=== PATIENT | male | born 1960 | race African-American/Black ===

== ENCOUNTER 2020-11-24 09:19 | Inpatient (IN) | payer OTHER ==
[~2020-11-24] VITALS: Ht 182.9 cm; Wt 115.7 kg
--- NOTE | ~2020-11-24 | PLAN ---
[facility] [place] [address] REHAB UNIT PLAN OF CARE Name: EMMANUEL CHRISTIE Room #: 353-P ADM IN M.R.#: [id number] Admission: 11/24/20 Attend Phys: Maria Luisa Escobar MD Discharge: Date of : 58 Report #: [id number] THIS REPORT FOR: cc: HERNANDO CHRISTIE Physician not on staff Emmanuel Jorgensen MD ~ DATE OF SERVICE: 12/13/2020 This is a letter of justification for an acute in-hospital inpatient rehabilitation stay. Please see the documentation earlier today from Jillian Cortes, nurse practitioner. I agree with her documentation and findings. The patient meets criteria for an acute in-hospital inpatient rehabilitation stay for the following reasons: 1. He meets the medical necessity criteria and warrants close physiatry involvement. The patient has the multiple medical comorbidities with the COVID-19 pneumonia with hypoxic respiratory failure with improvement from a pulmonary perspective. He continues on the IV Solu-Medrol. Pulmonary medicine has been closely involved along with Infectious Disease. He is currently off the IV antibiotics and is on oral antibiotics. His course has been complicated by bilateral pulmonary emboli. He is needing his platelets closely monitored with the last count at 84,000 and he has had issues with hypercoagulable state. He also has had issues with odynophagia with dysphagia and Gastroenterology is involved with question of Salud esophagitis versus herpes. He has been started on nystatin swish and swallow and continued the PPI. He does have obesity with suspected obstructive sleep apnea. His overall medical course has improved and the plan is for him to be discharged to the acute inpatient rehab [facility] tomorrow, 12/14/2020, as he will be able to be taken out of isolation and could actually be transferred to the acute in-hospital inpatient rehabilitation [facility] which exists within the [facility]. He has had issues with delirium and documented encephalopathy, which also are improving, but not yet resolved. He was placed on Haldol p.r.n. on 11/28/2020 and received scheduled Haldol from 12/03/2020 to 12/10/2020. He is no longer having issues with agitation. He has been off the Haldol since 12/10/2020. He has had issues with cognitive slowness noted by nursing and has safety issues, which have been documented in occupational therapy. Speech therapy has been consulted as far as further documenting his cognitive deficits. He meets criteria for an acute in-hospital inpatient rehabilitation stay and the multiple business management consultant physicians could continue to follow while on the acute inpatient rehabilitation [facility]. 2. The patient has the tolerance for an acute inpatient rehabilitation stay. He is now ambulating up to 60 feet in physical therapy. He starts at 2.[address] [place] [address] REHAB UNIT PLAN OF CARE Name: EMMANUEL CHRISTIE Room #: 353-P [place] IN M.R.#: [id number] Admission: 11/24/20 Attend Phys: Maria Luisa Escobar MD Discharge: Date of : 58 Report #: [id number] at rest with an increase up to 6 liters with activity. His tolerance has improved nicely and he now has reached the level of being able to tolerate the 3 hours of therapy. He has the occupational therapy need to maximize independence with ADLs, which are also complicated by the safety issues which are noted with his improving encephalopathy. He warrants 3 disciplines including speech therapy to work on cognitive issues as well as to further assist regarding the swallowing issues, which have been noted above. 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 In coordinating all of these disciplines as well as the multiple medical consultants and the array of therapy needs, it is critical to have a event decorator and designer or physical medicine and vendor management specialist involved. The services thus are warranted and indicated within an acute inpatient rehabilitation ____. 3. [facility] has had COVID-19 rehabilitation waivers that have also been in place, which will not be indicated in this patient's case, but I think are indication of the appropriateness and importance of proper care involving this patient population. While this is not a Medicare replacement plan, I think it is also important to note that [facility] has come across with policies regarding benefits and medical necessity in their policy menu. Chapter 4 benefits ____ indicates that "coverage criteria can be no more restrictive than original Medicare's national and local coverage policies." I appreciate the ability to appeal this case to a event decorator and designer. It is only our desire to give this patient the appropriate care that he warrants, needs and deserves. The ability for him to get his rehabilitation within the same hospital he has received his acute care will be of benefit to him as far as continuity of care and we will also allow the rehabilitation program to maximize his functional independence and overall recovery which is our underlying goal as healthcare providers. If I can be of any further assistance, my office number is [phone]. By: [id number] Emmanuel Jorgensen MD /nt
[2020-11-24 09:19] VITALS: BP 132/86
--- NOTE | 2020-11-24 10:06 | NUR ---
TALKED WITH PT, STATED OK TO KEEP DAUGHTER UPDATED WITH MEDICAL DAUGHTER JOEY CHRISTIE: [phone]
[2020-11-24 10:08] LABS: ABSOLUTE NEUTROPHILS 2.9 thou/uL (1.4-8.2); BASOPHILS 0.5 % (0.0-2.0); EOSINOPHILS 0.1 % (0.0-3.0); HEMOGLOBIN 14.9 gm/dL (14.0-18.0); LYMPHOCYTES 24.1 % (24.0-44.0); MCH 28.8 pg (26.0-34.0); MCHC 33.1 g/dL (28.0-37.0); MCV 86.9 fL (80.0-100.0); PLATELET COUNT 134 thou/uL (150-400); POLYS 66.3 % (36.0-66.0); RBC 5.18 mil/uL (4.50-6.00); RDW 13.8 % (10.5-14.5); WBC 4.4 thou/uL (4.0-11.0)
[2020-11-24 10:19] LABS: ANION GAP 12 mmol/L (7-16); BUN 20 mg/dL (7-18); CALCIUM 8.4 mg/dL (8.5-10.1); CHLORIDE 100 mmol/L (98-107); CO2 25 mmol/L (21-32); CREATININE 1.7 mg/dL (0.7-1.3); GLUCOSE 113 mg/dL (74-106); POTASSIUM 3.9 mmol/L (3.5-5.1); SODIUM 137 mmol/L (136-145)
[2020-11-24 10:29] LABS: ALBUMIN 3.1 g/dL (3.4-5.0); SGOT 61 U/L (15-37); SGPT 41 U/L (30-65); TOTAL BILIRUBIN 0.6 mg/dL (0.2-1.0); TOTAL PROTEIN 7.5 g/dL (6.4-8.2); TROPONIN-I <0.06 ng/mL (<0.06)
[2020-11-24 11:30] LABS: BE(vivo) -0.9 mmol/L (-2 to +3); HCO3 22.3 mmol/L (22.0-26.0); PCO2 33.2 mmHg (35.0-45.0); PO2 53.6 mmHg (80.0-100.0); pH 7.446 (7.360-7.450); sO2 89.5 % (92.0-98.0)
[2020-11-24 12:09] VITALS: BP 135/90
--- NOTE | 2020-11-24 12:22 | NUR ---
TRIED TO GIVE DAUGHTER A CALL WITH UPDATE. NO ANSWER.
[2020-11-24 12:23] VITALS: BP 127/88
[2020-11-24 12:38] VITALS: BP 119/89
[2020-11-24 15:02] LABS: URINE BLOOD 1+ (Negative); URINE CLARITY CLEAR; URINE COLOR YELLOW; URINE GLUCOSE-RANDOM* NEGATIVE (Negative); URINE KETONES NEGATIVE (Negative); URINE LEUKOCYTES-REFLEX TRACE (Negative); URINE NITRITE-REFLEX NEGATIVE (Negative); URINE PROTEIN (DIPSTICK) 2+ (Negative); URINE SPECIFIC GRAVITY >= 1.030 (1.005-1.035)
[2020-11-24 15:08] LABS: ICTOTEST (BILI CONFIRMATORY) Negative (Negative); URINE BILIRUBIN NEGATIVE (Negative)
[2020-11-24 15:10] LABS: FINE GRANULAR CASTS 4-10 Moderate /LPF (None Seen)
[2020-11-24 15:11] LABS: BACTERIA-REFLEX 1-9 Few /HPF (None Seen); CASTS None Seen /LPF (None Seen); MUCUS 4-6 Moderate strn/LPF (None Seen); SQUAMOUS 4-10 Moderate /LPF (0-3); URINE RBC 0-2 Rare /HPF (0-2); URINE WBC-REFLEX 0-5 Rare /HPF (0-5)
[2020-11-24 15:12] LABS: AMORPHOUS URATES Few /LPF (None Seen)
[2020-11-24 15:22] VITALS: BP 120/80
--- NOTE | 2020-11-24 16:32 | NUR ---
PATIENT ADMITTED TO UNIT AT THIS TIME. HE IS ALERT ORIENTED X4. DENIES PAIN. RESPIRATIONS ARE EVEN NON LABORED. UP WITHOUT ASSIT TO BATHROOM. NO OPEN AREAS NOTED TO SKIN. ON COVID ISOLATION.
[2020-11-24 19:56] VITALS: BP 113/75
[2020-11-25 00:02] VITALS: BP 115/82
[2020-11-25 04:30] LABS: ABSOLUTE NEUTROPHILS 3.6 thou/uL (1.4-8.2); BASOPHILS 0.5 % (0.0-2.0); HEMATOCRIT 40.8 % (42.0-52.0); HEMOGLOBIN 13.2 gm/dL (14.0-18.0); LYMPHOCYTES 11.7 % (24.0-44.0); MCH 28.2 pg (26.0-34.0); MCHC 32.2 g/dL (28.0-37.0); MCV 87.6 fL (80.0-100.0); PLATELET COUNT 148 thou/uL (150-400); POLYS 81.8 % (36.0-66.0); RBC 4.66 mil/uL (4.50-6.00); WBC 4.3 thou/uL (4.0-11.0)
[2020-11-25 04:54] LABS: ALBUMIN 2.5 g/dL (3.4-5.0); CALCIUM 8.3 mg/dL (8.5-10.1); CREATININE 1.5 mg/dL (0.7-1.3); MAGNESIUM 2.6 mg/dL (1.8-2.4); PHOSPHORUS 2.9 mg/dL (2.5-4.9); POTASSIUM 4.1 mmol/L (3.5-5.1); TOTAL BILIRUBIN 0.4 mg/dL (0.2-1.0); TOTAL PROTEIN 7.2 g/dL (6.4-8.2)
[2020-11-25 05:10] VITALS: BP 105/70
[2020-11-25 07:30] VITALS: BP 145/84
--- NOTE | 2020-11-25 08:03 | NUR ---
PROGRESS PT SLEPT MOST OF NIGHT SEEMS VERY FATIGUED BUT STATES HE DOESN'T FEEL THAT SICK IVF'S INFUSING ORDERED PT TOLERATING LIQUIDS VOIDING QS DARK YELLOW URINE LUNGS DIMINISHED PTDENIES PRODUCTIVE COUGH.
--- NOTE | 2020-11-25 18:50 | NUR ---
PATIENT CONT TO PROGRESS TOWARDS DISCH. NEEDS REMINDER TO PUT ON OXYGEN. NOW SLEEPING.
[2020-11-25 21:15] VITALS: BP 123/67
[2020-11-26 02:05] LABS: GLYCOHEMOGLOBIN (HGB A1C) 6.4 % (4.8-5.6)
[2020-11-26 04:52] VITALS: BP 121/74
[2020-11-26 05:47] LABS: ABSOLUTE NEUTROPHILS 14.1 thou/uL (1.4-8.2); BASOPHILS 0.1 % (0.0-2.0); HEMOGLOBIN 12.7 gm/dL (14.0-18.0); LYMPHOCYTES 3.6 % (24.0-44.0); MCHC 31.8 g/dL (28.0-37.0); MCV 88.1 fL (80.0-100.0); PLATELET COUNT 170 thou/uL (150-400); POLYS 92.3 % (36.0-66.0); RBC 4.54 mil/uL (4.50-6.00); RDW 13.8 % (10.5-14.5)
--- NOTE | 2020-11-26 06:10 | NUR ---
Received pt. on 10L/HF with O2 sat in the low 90's. He does get short of breath with exertion. Encouraged to use IS. He stated he slept well during the night. Up ad jose in room with steady gait. No respiratory distress when he got up to use the bathroom.Cont. on enhanced precaution , afebrile.
[2020-11-26 06:12] LABS: ALBUMIN 2.3 g/dL (3.4-5.0); ANION GAP 9 mmol/L (7-16); BUN 26 mg/dL (7-18); CHLORIDE 110 mmol/L (98-107); CO2 22 mmol/L (21-32); CREATININE 1.3 mg/dL (0.7-1.3); DIRECT BILIRUBIN < 0.1 mg/dL (<0.1-0.2); GLUCOSE 143 mg/dL (74-106); MAGNESIUM 2.5 mg/dL (1.8-2.4); PHOSPHORUS 2.8 mg/dL (2.6-4.7); SGOT 37 U/L (15-37); SGPT 31 U/L (16-63); SODIUM 141 mmol/L (136-145); TOTAL BILIRUBIN 0.4 mg/dL (0.2-1.0); TOTAL PROTEIN 6.8 g/dL (6.4-8.2); WBC 15.3 thou/uL (4.0-11.0)
[2020-11-26 06:20] LABS: POTASSIUM 4.5 mmol/L (3.5-5.1)
[2020-11-26 07:45] VITALS: BP 126/69
--- NOTE | 2020-11-26 07:58 | HC ---
[facility] [place] [address] CONSULTATION Name: EMMANUEL CHRISTIE Room #: 361[facility] IN ..#: [id number] Admission: 11/24/20 Attend Phys: Maria Luisa Ecsobar MD Discharge: Date of : 58 Report #: [id number] THIS REPORT FOR: cc: HERNANDO CHRISTIE Physician not on staff Erich Meeks MD ~ DATE OF SERVICE: 11/25/2020 INFECTIOUS DISEASE CONSULTATION ATTENDING PHYSICIAN: Dr. Maria Luisa Escobar REASON FOR EVALUATION: COVID-19 infection, complicated by pneumonitis and respiratory failure. HISTORY OF PRESENT ILLNESS: Chart reviewed, patient examined. This is a 60-year-old gentleman without significant medical history who had noted onset of illness within the last couple of weeks, he had progressive dyspnea and occasional cough. He describes as chest-related discomfort, almost comparable to acid reflux. He did have episodes of dry heaving, not aware of any significant fevers. He did lose a sense of smell or taste. He did have generalized myalgias, arthralgias either. Evaluation was confirmed to have a positive COVID test. Chest x-ray showed cardiomegaly. Creatinine elevated at 1.7. D-dimer slightly elevated at 1.45. CTA chest did confirm ground glass opacities consistent with the COVID. ABGs showed hypoxemia with pO2 of 53.6 on 2 liters nasal cannula. Urinalysis is otherwise unremarkable, 0-5 white cells. Urinary antigens were unremarkable. Influenza antigen was negative as well. He was empirically started on therapy with ceftriaxone, azithromycin, latter was switched to doxycycline. ALLERGIES: None known. MEDICATIONS: Currently include ascorbic acid, fenofibrate, ceftriaxone, zinc, melatonin, methylprednisolone, doxycycline, cholecalciferol, famotidine, ivermectin. PAST MEDICAL HISTORY: Otherwise, unremarkable. SOCIAL HISTORY: Former smoker. No ethanol. No illicit drug use. FAMILY HISTORY: Noncontributory. REVIEW OF SYSTEMS: Otherwise, unremarkable. PHYSICAL EXAMINATION: [facility] [address] [place] [address] CONSULTATION Name: EMMANUEL CHRISTIE Room #: [address] [place] [address] [place] [facility].#: [id number] Admission: 11/24/20 Attend Phys: Maria Luisa Escobar MD Discharge: Date of : 58 Report #: [id number] GENERAL: Ipjs-ka-ylcufmsy distress, sitting in the side of bed. He has nasal cannula in place, increased work of breathing. He is obese. VITAL SIGNS: Temperature 98.3, pulse 79, respirations 20, blood pressure 145/84. SKIN: Warm, dry, no rashes. HEENT: Normocephalic. Extraocular muscles are intact. NECK: Does have a thick neck seems to be supple. LUNGS: Diminished breath sounds. He has got some crackles at the bases. HEART: Regular. I do not appreciate a murmur. ABDOMEN: Somewhat firm, nontender. EXTREMITIES: No cyanosis. GENITOURINARY AND RECTAL: Deferred. LABORATORY DATA: Electrolytes: Sodium 138, potassium 4.1, chloride 104, bicarbonate is 22, anion gap of 12, BUN and creatinine 21 and 1.5, glucose of 158. AST of 46, ALT of 33, albumin 2.5, total protein of 7.2, estimated GFR 58. CBC: White count of 4.3, H and H 13.2 and 40.8, platelets of 148. TSH 2.132. Vitamin B12 957. Legionella, Streptococcus pneumoniae antigen was negative. ABGs: pH 7.446, pCO2 of 33.2, pO2 of 53.6 on 2 liters. ASSESSMENT: COVID-19 infection, complicated by pneumonitis and respiratory failure. The patient with significant obesity, does have hyperglycemia as well. We will continue therapy as prescribed. He was given ceftriaxone, doxycycline, will continue those as well as ivermectin will initiate therapy with remdesivir, receive vitamins and corticosteroids as well. He remains somewhat tenuous. We will continue to monitor expectantly. Continue oxygen support as allowed. Add incentive spirometry. <ELECTRONICALLY SIGNED> By: Erich Meeks MD 11/26/20 0758 [id number] Erich Meeks MD /nt
--- NOTE | 2020-11-26 10:22 | EKG ---
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: JCHAIBIJU : 1960 Requested By: Tucker Youngblood Order Number: [id number] MD: Yanick Pacheco Measurements Intervals [place] Rate: 109 P: 9 [place]: 155 QRS: 33 QRSD: 97 T: 5 QT: 324 QTc: 437 Interpretive Statements Sinus tachycardia Baseline wander in lead(s) V2 No previous ECG available for comparison Electronically Signed On 11-26-2020 10:22:00 JOURNEYMAN POWERHOUSE OPERATOR by Yanick Pacheco [email or web address] <ELECTRONICALLY SIGNED> By: Yanick Pacheco MD, [facility] 11/26/20 1022 0935 0935 Yanick Pacheco MD, FACC /EPI
--- NOTE | 2020-11-26 10:25 | EKG ---
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: BRENDA : 1960 Requested By: Koby Gomez Order Number: [id number] : Yanick Pacheco Measurements Intervals [place] Rate: 74 P: 30 ID: [id number] QRS: 17 QRSD: 114 T: -2 QT: 398 QTc: 442 Interpretive Statements Sinus rhythm Borderline intraventricular conduction delay Borderline T abnormalities, inferior leads No previous ECG available for comparison Electronically Signed On 11-26-2020 10:25:21 ABLE BODIED SEAMAN by Yanick Pacheco [email or web address] <ELECTRONICALLY SIGNED> By: Yanick Pacheco MD, [facility] 11/26/20 1025 0913 2 Yanick Pacheco MD, FACC /EPI
[2020-11-26 11:18] LABS: BE(vivo) -2.9 mmol/L (-2 to +3); HCO3 20.1 mmol/L (22.0-26.0); PCO2 30.3 mmHg (35.0-45.0); PO2 120.9 mmHg (80.0-100.0); sO2 98.5 % (92.0-98.0)
[2020-11-26 11:27] VITALS: BP 127/79
--- NOTE | 2020-11-26 14:18 | NUR ---
INITIAL ASSESSMENT: SW reviewed chart and spoke with nursing. Pt was admitted from home due to acute respiratory failure. Pt had positive COVID test on 11/24. Pt placed in Enhanced Isolation due to COVID. Pt is afebrile and requiring bipap support. Pt is on IV abx and IV steroids. Pt has been started on Remdesivir and Ivermectin. Pt unable to speak via phone due to bipap. SW placed call to pt's dtr, Neal ([phone]). Voice mailbox is full. Per chart, pt is alert/orientated and lives at home. Pt's PCP is Dr. Jerardo Boggs. SW is following to assist as needed with discharge planning.
[2020-11-26 16:52] VITALS: BP 130/89
--- NOTE | 2020-11-26 19:48 | NUR ---
RN ASSUMED PT'S CARE AT 0700AM, PT IS A&OX3, PT HAS DE-SAT WITH O2 15L/MIN/NC, PT HAS BIPAP WITH O2 80-100% AT MOST OF TIME TO KEEP O2SAT 95-98%, PULMOMOLOGY DR HAS CONSULT, PT IS CONTINUING IV ABX AND REMDESIVI, PT DENIES PAIN AT DAY SHIFT.
[2020-11-26 20:29] VITALS: BP 112/72
[2020-11-27 00:46] VITALS: BP 135/94
[2020-11-27 05:04] VITALS: BP 146/99
--- NOTE | 2020-11-27 05:18 | NUR ---
PT RESTING QUIETLY. VSS AFEBRILE. SATS 98% ON BIPAP. NO C/O.
[2020-11-27 07:39] VITALS: BP 136/90
--- NOTE | 2020-11-27 09:12 | NUR ---
DISCONNECTED BIPAP AT PT REQUEST TO USE RESTROOM FOR BM. TRANSFERRED PT TO 15L VIA NC FOR REST ROOM TRIP. PT WAS SLIGHTLY UNSTABLE WITH AMBULATION. UPGRADED TO FALL RISK. RECONNECTED PT TO BIPAP. PULSE OX SATURATION STABLE AT 95%.
[2020-11-27 09:22] LABS: ALBUMIN 2.5 g/dL (3.4-5.0); CALCIUM 8.6 mg/dL (8.5-10.1); CREATININE 1.4 mg/dL (0.7-1.3); DIRECT BILIRUBIN 0.2 mg/dL (<0.1-0.2); PHOSPHORUS 4.1 mg/dL (2.5-4.9); TOTAL BILIRUBIN 0.4 mg/dL (0.2-1.0); TOTAL PROTEIN 7.3 g/dL (6.4-8.2)
--- NOTE | 2020-11-27 10:27 | NUR ---
Assess due to high BMI 41.9 which may be scale error. Past few days, wts trending 266-280 lb, now sudden increase 309 lb? Admit with COVID+ status. Has required steroids, and now on BIPAP. Intake yesterday fair to good. Low nutrition risk at this time, but will continue to follow per protocol and if respiratory needs change.
--- NOTE | 2020-11-27 13:27 | NUR ---
SW reviewed chart and spoke with nursing and attending physician. Pt remains in Enhanced Isolation due to COVID. Pt is afebrile and requiring bipap support. Pt is on IV abx and IV steorids. Pt is on Remdesivir. Therapy evals to be ordered when pt is able to participate. SW is following to assist as needed with discharge planning.
--- NOTE | 2020-11-27 16:49 | NUR ---
PT FAMILY DELIVERED FOOD AND DRINK FOR PT. THIS RN INQUIRED WITH PT FAMILY IF HOT LIQUID CONTAINED ELDERBERRY. PT FAMILY STATED "IT'S FROM THE EARTH". THIS RN UNSURE IF ELDERBERRY IS COMPATIBLE WITH PT NUMEROUS IV TREATMENT FLUIDS. PT STATES HE IS NOT INTERESTED IN DRINKING HOT LIQUID AFTER PT FAMILY CONFIRMED IT HAS MULTIPLE INGREDIENTS "FROM THE EARTH". PT INSTEAD CHOSE TO DRINK [place] JUICE DRINK PT FAMILY PROVIDED. PT ALSO HAS CHICKEN NOODLE SOUP FROM FAMILY HE DECLINED TO EAT AT THIS TIME HE IS HAVING DIFFICULTY BREATHING AND EATING AT BRIEF BREAKS FROM THE BIPAP.
--- NOTE | 2020-11-27 16:58 | NUR ---
PT IV IN L AC IS LEAKING. IV ATTEMPT X2 BY THIS RN UNSUCCESSFUL. IV TEAM PAGED.
--- NOTE | 2020-11-27 18:10 | NUR ---
PT RESTING. REFUSED ATTEMPT TO EAT/DRINK. PULSE OX READING 94%.
[2020-11-27 20:00] VITALS: BP 122/87
[2020-11-28 04:17] VITALS: BP 127/91
--- NOTE | 2020-11-28 05:57 | NUR ---
PROGRESS PT A/O X4. VSS. ON BIPAP AT 65% TOLERATING WELL KEPT IT ON ALL NIGHT. TELEMETRY INTACT READING SR WITH RATES IN THE 80'S. VOIDED PER URINAL UP WITH ASSIST D/T EQUIPMENT AND OXYGEN NEEDS. DENIES PAIN. SLEPT MOST OF SHIFT. IV ANTIBIOTICS GIVEN ORDERED , RT TX'S CONTINUE. CONTINUE POC.
[2020-11-28 06:35] LABS: ALBUMIN 2.4 g/dL (3.4-5.0); CALCIUM 8.7 mg/dL (8.5-10.1); CREATININE 1.4 mg/dL (0.7-1.3); DIRECT BILIRUBIN 0.3 mg/dL (<0.1-0.2); PHOSPHORUS 3.7 mg/dL (2.5-4.9); POTASSIUM 5.1 mmol/L (3.5-5.1); TOTAL BILIRUBIN 0.8 mg/dL (0.2-1.0); TOTAL PROTEIN 6.7 g/dL (6.4-8.2)
[2020-11-28 07:53] VITALS: BP 131/90
[2020-11-28 11:43] VITALS: BP 150/95
--- NOTE | 2020-11-28 13:20 | NUR ---
SOCIAL WORK NOTE: JAMES reviewed chart and spoke with nursing. Pt remains in Enhanced Isolation due to COVID. Pt is requiring bipap support. Pt is on Remdesivir, IV abx and IV steroids. JAMES spoke with pt's dtr, Idalmis, via phone. Introduced role of SW. Pt is normally alert/orientated x 4. Pt lives at home alone. Prior to admission, pt was independent with ADLs. No use of DME. 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 No hx of services or post-acute placement. Pt's dtr states that pt does not have a PCP. Pt's dtr asking to speak with physician for an update. Pt's dtr states that pt's other daughter was asking to fruit or nut picker pt's wallet. JAMES checked with public safety, who state that pt's wallet is not in security. JAMES discussed with nursing, who will check with pt. If he's agreeable, wallet can be taken to security for family to fruit or nut picker. JAMES provided Idalmis's contact info to attending physician. JAMES is following to assist as needed with discharge planning. JOSE Mcdaniel
--- NOTE | 2020-11-28 16:12 | NUR ---
RN ASSUMED PT'S CARE AT 0700AM, PT IS A&OX3, PT IS ON BIPAP WITH 02 60%, PEEP 10 TO KEEP O2SAT 92-95%, PT IS CONTINUING IV ABX AND REMDESIVIR, PT'S VS ARE STABLE BY THIS TIME, PT CAN GET UP TO BSC. PT DENIES PAIN AT THIS TIME.
[2020-11-28 19:19] VITALS: BP 150/115
--- NOTE | 2020-11-28 21:32 | NUR ---
DURING SHIFT REPORT PT REPORTED BY RESPIRATORY TO VERY ANXIOUS HAVING DIFFICULTY BEING CALM, BEING PLACED ON BIPAP. PROVIDER CONTACTED AND PRN HALDOL ORDER OBTAINED.
--- NOTE | 2020-11-28 21:35 | NUR ---
PT LUNGS COARSE, BIPAP ON INITIALLY, SITTING IN SEMI FOWLERS. PT FIDGETING IN BED, CONTINUING TO TALK. PT REMINDED TO REST AND RELAX. LUNGS COARSE, ABD DISTENDED. BLE EDEMA. PT HAS INCREASED RR. PT STATED HE TO NURSE HE WAS TO RESTLESS TO MAINTAIN BIPAP AND WANTED OPTI TANA BACK ON. RESPIRATORY NOTIFIED. BEFORE RESPIRATORY CAME TO ROOM, PT DISCOVERD SITTING UP ON EDGE OF BED WITH BIPAP OFF. PT INSTRUCTED FIRMLY BY NURSE TO HOLD MASK TO HIS FACE, PT STATED I AM GOING TO STOP BREATHING. PT TOLD IF HE TAKES OF HIS OXYGEN AGAIN THAT WOULD BE A REALITY. PT INSTRUCTED THAT RESPIRATORY WAS COMING AND THAT THE OVERHEAD LIGHT WOULD REMAIN ON FOR MONITORING. PROVIDER CONTACTED ABOUT CONTINUE RESTLESS AND ANXIOUS BEHAVIORS FOR POSSIBLE ADDITIONAL PRN MEDICATION.
[2020-11-28 22:13] LABS: BE(vivo) -4.2 mmol/L (-2 to +3); HCO3 17.7 mmol/L (22.0-26.0); PCO2 25.8 mmHg (35.0-45.0); PO2 73.7 mmHg (80.0-100.0); pH 7.454 (7.360-7.450); sO2 95.7 % (92.0-98.0)
--- NOTE | 2020-11-28 23:51 | NUR ---
AFTER ABG DONE ON MAX OUT OPTI TANA, PT PLACED BACK ON BIPAP, PT NOW RESTING AND ON CONTINUOUS PULSE OX. PTS BEHAVIOR CHANGES, ANXIETY AND ABG RESULTS REVIEWED WITH RT AND PULMONARY DR. ORDERS TO TRANSFER TO ICU, ED DR WILL NEED TO DO INTUBATION AND FASHION PATTERNMAKER NOTIFIED. REPORT WILL BE CALLED TO ICU NURSE ROOM 245. FAMILY WILL BE UPDATED.
[2020-11-29] VITALS (26 sets, daily range): BP systolic 129–169; BP diastolic 87–126
--- NOTE | 2020-11-29 01:13 | NUR ---
MICHAEL DESIGNATED REP AND DAUGHTER LEFT MESSAGE RE TRANSFER TO ICU AND CHANGES IN CONDITION.
--- NOTE | 2020-11-29 03:36 | NUR ---
ASSUMED CARE OF PATIENT FROM 3W. PATIENT ON BIPAP 60% FIO2. EXTREMELY ANXIOUS AND WORRIED ABOUT COVID. EDUCATION GIVEN. DR MCCLURE CALLED AND UPDATED ON PATIENT CONDITION. 2 MG OF ATIVAN GIVEN, PATIENT ABLE TO RELAX AND SLEEP. O2 SATS REMAIN ABOVE 92% AT THIS TIME. DAUGHTER MICHAEL UPDATED AND ICU EXPLAINED. VERBALIZED UNDERSTANDING. POC GOALS ESTABLISHED.
[2020-11-29 05:02] LABS: BE(vivo) -2.7 mmol/L (-2 to +3); HCO3 19.7 mmol/L (22.0-26.0); PO2 66.4 mmHg (80.0-100.0); pH 7.451 (7.360-7.450); sO2 94.3 % (92.0-98.0)
[2020-11-29 07:03] LABS: HEMATOCRIT 46.6 % (42.0-52.0); MCH 28.2 pg (26.0-34.0); MCHC 32.2 g/dL (28.0-37.0); MCV 87.6 fL (80.0-100.0); RBC 5.32 mil/uL (4.50-6.00); WBC 9.6 thou/uL (4.0-11.0)
[2020-11-29 07:23] LABS: ALBUMIN 2.5 g/dL (3.4-5.0); CALCIUM 8.3 mg/dL (8.5-10.1); CREATININE 1.3 mg/dL (0.7-1.3); DIRECT BILIRUBIN 0.3 mg/dL (<0.1-0.2); POTASSIUM 4.5 mmol/L (3.5-5.1); TOTAL BILIRUBIN 0.9 mg/dL (0.2-1.0); TOTAL PROTEIN 6.7 g/dL (6.4-8.2)
--- NOTE | 2020-11-29 11:36 | NUR ---
PATIENT'S DAUGHTER MICHAEL CALLED RN FOR UPDATE TWICE AND HAS BEEN UPDATED AND QNS ANSWERED. INFORMED TO UPDATE REST OF FAMILY SINCE SHE'S THE MAIN PERSON OF CONTACT.
--- NOTE | 2020-11-29 15:07 | NUR ---
PATIENT ON BIPAP AND WHEN OFF IS ON OPTIFLO. GETS ANXIOUS AND WANTS REASSURANCE THAT HE WILL BE OKAY AND GETS FRUSTRATED IF SOMEONE DOESN'T GIVE THAT CONCRETE ANSWER. PATIENT REASSURED MULTIPLE TIMES THAT WE ARE DOING ALL WE CAN DO TO AID IN HIS RECOVERY. DAUGHTER MICHAEL CALLED MULTIPLE TIMES AND UPDATED. PATIENT'S BROTHER CALLED STATING THAT PATIENT CALLED HIM AND TOLD HIM THAT HE WAS NOT RECEIVING CARE. I TALKED WITH HIM AND HE WANTED TO TALK TO MY "BOSS" I PLACED CALL ON HOLD AND REPORTED TO CONTROL PANEL ASSEMBLER ADONIS POOLE WHO WAS BUSY AT THE TIME AND I WAS GOING TO TAKE HIS NAME AND NUMBER FOR CHARGE TO CALL HIM BACK BUT HE HUNG UP THE PHONE. MICHAEL CALLED ME BACK AND WANTED TO FACETIME WITH PATIENT, I WENT TO THE ROOM TO FACE TIME BUT CALL WOULD NOT GO THROUGH BUT WHILE I WAS STILL IN THE ROOM PATIENT RECEIVED VIDEO CONFERENCE CALL FROM FAMILY AND HE WAS OKAY FOR ME TO LEAVE THE ROOM.
[2020-11-30] VITALS (23 sets, daily range): BP systolic 126–169; BP diastolic 76–123
--- NOTE | 2020-11-30 05:49 | NUR ---
ASSESSMENT: PT REMAIN ALERT AND ORIENT TIMES TWO, CONFUSED TO PLACE AND SITUATION. PT REPEAT THE SAME QUESTIONS OVER AND OVER IE; "WHEN AM I GOING HOME," "WHAT ARE YA'LL DOING TO ME", AND "COULD I GO HOME IN THE MORNING." PT HAS BEEN INFORMED SEVERAL TIMES ABOUT HIS CURRENT SITUATION AND LOTS OF ENCOURAGEMENT AND REASSURANCE RENDERED. BIPAP FOR 5 HOURS THEN THIS AM AT APPROXIMATELY 0400 PT HAD A PANIC ATTACK. HE TOOK OFF HIS BIPAP MASK, STOOD ON THE SIDE OF THE BED AND REQUESTED TO BE PLACED ON THE OPTI-TANA. PRECEDEX WAS INITIALTED. SR PER MONITOR. VSS, AFEBRILE. POOR PROGRESS TOWARDS DC GOALS, WILL CONTINUE TO MONITOR,
--- NOTE | 2020-11-30 12:11 | NUR ---
chart review. noted he is requiring bipap and optflow o2and panic attack. juliocesar received phone call from daughter carl, she requested to talk with MD rt dad is not wanting to stay there. i know with his breathing can make him irritable"/daughter carl. juliocesar passed on information to MD to call her rt medical question. will cont following as needed for dc needs. no anticipated dc over the weekend.
--- NOTE | 2020-11-30 18:04 | NUR ---
assume care 0700. pt oriented x2 at 0800 assessment increased work or breathing. both agitation and work of breath improved. pt stated, "it feels easier to breath." during afternoon assessment. up to chair at 1300 to facetime w/family. pt standby assist. off precedex this afternoon. no bm. adequate output. down to 50 liters 80% on optiflow today
[2020-12-01] VITALS (21 sets, daily range): BP systolic 113–178; BP diastolic 81–125
--- NOTE | 2020-12-01 06:17 | NUR ---
AT APPROX 0130 PT BECAME MORE ANXIOUS AND BEGAN TAKING OFF HIS BIPAP. PRN HALDOL WAS GIVEN (SEE EMAR FOR DETAILS). AROUND 0300 PT TRIED TO GET OUT OF BED AND AGAIN PULL OFF HIS BIPAP. I CALLED THE LAST CLEANER WHO ORDERED A ONE TIME DOSE OF ATIVAN (SEE EMAR). AFTER THIS ONE TIME DOSE THE PT WAS MORE RELAXED, TOLERATING THE BIPAP.
--- NOTE | 2020-12-01 10:09 | NUR ---
ASSUMMED CARE OF THIS PATIENT AT 0700, FROM THE NIGHT NURSE. PLACE ON OPTIFOW FOR BREAKFAST. SPOKE WITH HIS DAUGHTER MICHAEL AT 1007 AND UPDATED HER.
[2020-12-01 12:52] LABS: ABSOLUTE NEUTROPHILS 9.9 thou/uL (1.4-8.2); BASOPHILS 0.2 % (0.0-2.0); EOSINOPHILS 0.2 % (0.0-3.0); HEMATOCRIT 52.6 % (42.0-52.0); LYMPHOCYTES 4.1 % (24.0-44.0); MCH 27.9 pg (26.0-34.0); MCHC 32.3 g/dL (28.0-37.0); MCV 86.5 fL (80.0-100.0); PLATELET COUNT 101 thou/uL (150-400); POLYS 92.5 % (36.0-66.0); RBC 6.08 mil/uL (4.50-6.00); RDW 13.9 % (10.5-14.5); WBC 10.7 thou/uL (4.0-11.0)
[2020-12-01 13:10] LABS: CALCIUM 8.5 mg/dL (8.5-10.1); CREATININE 1.2 mg/dL (0.7-1.3); MAGNESIUM 2.5 mg/dL (1.8-2.4); POTASSIUM 4.9 mmol/L (3.5-5.1); TOTAL BILIRUBIN 0.9 mg/dL (0.2-1.0); TOTAL PROTEIN 7.2 g/dL (6.4-8.2)
--- NOTE | 2020-12-01 15:06 | NUR ---
SPOKE WITH DAUGHTER MICHAEL AND UPDATED HER TO HER FATHER'S STATUS.
--- NOTE | 2020-12-01 18:15 | NUR ---
PATIENT PROGRESSING TOWARDS OUTCOME GOALS O2 ON BIPAP WAS DECREASED TO 60% AND O2 SAT IN THE LOWER TO MID 90'S. PATIENT IS LESS RESTLESS THIS EVENING. WATCHING TV AND HAD A PHONE CONFERENCE WITH HIS FAMILY AT 1445.
[2020-12-02] VITALS (44 sets, daily range): BP systolic 92–196; BP diastolic 56–122
[2020-12-02 04:37] LABS: MAGNESIUM 2.4 mg/dL (1.8-2.4); PHOSPHORUS 3.6 mg/dL (2.5-4.9)
[2020-12-02 04:41] LABS: ALBUMIN 2.7 g/dL (3.4-5.0); CALCIUM 8.2 mg/dL (8.5-10.1); CREATININE 1.4 mg/dL (0.7-1.3); DIRECT BILIRUBIN 0.3 mg/dL (<0.1-0.2); PHOSPHORUS 3.6 mg/dL (2.5-4.9); TOTAL BILIRUBIN 0.7 mg/dL (0.2-1.0); TOTAL PROTEIN 6.3 g/dL (6.4-8.2)
[2020-12-02 04:56] LABS: ABSOLUTE NEUTROPHILS 8.1 thou/uL (1.4-8.2); BASOPHILS 0.1 % (0.0-2.0); EOSINOPHILS 0.2 % (0.0-3.0); HEMATOCRIT 47.9 % (42.0-52.0); HEMOGLOBIN 15.3 gm/dL (14.0-18.0); LYMPHOCYTES 4.3 % (24.0-44.0); MCH 27.8 pg (26.0-34.0); MCHC 31.9 g/dL (28.0-37.0); MCV 87.2 fL (80.0-100.0); MONOCYTES 2.3 % (1.0-8.0); PLATELET COUNT 96 thou/uL (150-400); POLYS 93.1 % (36.0-66.0); RDW 13.6 % (10.5-14.5); WBC 8.7 thou/uL (4.0-11.0)
[2020-12-02 05:07] LABS: POTASSIUM 5.4 mmol/L (3.5-5.1)
[2020-12-02 05:17] LABS: D-DIMER 32.46 ug/mLFEU (0.19-0.50); INR 1.2; PROTIME 13.3 Seconds (9.3-11.4)
--- NOTE | 2020-12-02 05:57 | NUR ---
Patient very restless in the beginning of the shift. Required frequent replacement of Bipap, repositioning and reorienting. Slept on and off for about 15 minutes at a time. Patient continued to become more and more restless, taking the Bipap off almost constantly, which would cause him to desaturate and become very tachypneic. No reorienting was helping. Precedex restarted about 0130. Patient has rested on the Bipap well since then. Remains on 60% Fio2 with O2 sats in the mid 90's. RR teens, even/nonlabored. Blood pressures down to normal range. Adequate U/O per urinal. AM labs noted. Will reveiw with day shift RN. Spoke with patient's daughter, Idalmis, last evening. Gave update in patient condition. See documentation on interventions for assessment details. Patient is slowly progressing towards goals.
--- NOTE | 2020-12-02 09:30 | NUR ---
ASSUMMED CARE FROM THE NIGHT NURSE AT 0700. PATIENT REQUESTING PAIN MEDICATION AFTER ONE HOUR. REDIRECTED PATIENT THAT PAIN MEDICAION WAS NOT DUE FOR ANOTHER HOUR. DISCUSSED PAIN REGIMENT WITH DR GAYLE WHEN HE ROUNDED. RE EDUCATED PAITIENT ON THE PAIN PLAN AND RISK AND BENEFITS. CALLED HER SON, NIKKIE AND EDUCATED HIM ON THE RISK OF AN ILLUS AND POTENTIAL INFECTION AND BENEFITS OF CURRENT PAIN REGIMENT. VERBALIZED UNDERSTANDING OF PATIENT SAFETY. WILL CONTINUE TO MONITOR.
--- NOTE | 2020-12-02 15:01 | EKG ---
[address] [address] ELECTROCARDIOGRAM REPORT Name: EMMANUEL CHRISTIE Room #: 245-P ADM IN M.R.#: [id number] Admission: 11/24/20 Attend Phys: Maria Luisa Escobar MD Discharge: Date of : 58 Report #: [id number] [facility] Test Date: 2020-12-02 Test Time: 12:57:53 Pat Name: EMMANUEL CHRISTIE Department: Room: 245 P Gender: M Wildlife Ecologist: : 1960 Requested By: Maria Luisa Escobar Order Number: [id number] MD: Manuel Waddell Measurements Intervals [place] Rate: 61 P: 36 PA: 150 QRS: 32 QRSD: 114 T: 13 QT: 451 QTc: 455 Interpretive Statements Sinus rhythm Borderline intraventricular conduction delay Early repolarization Baseline wander in lead(s) V2,V3 Compared to ECG 11/26/2020 09:13:49 ST (T wave) deviation now present T-wave abnormality no longer present Electronically Signed On 12-02-2020 15:01:34 BAG MACHINE TENDER by Manuel Waddell [email or web address] <ELECTRONICALLY SIGNED> By: Manuel Waddell MD 12/02/20 1501 1257 1257 Manuel Waddell MD /EPI
[2020-12-02 15:07] LABS: CALCIUM 8.3 mg/dL (8.5-10.1); CREATININE 1.3 mg/dL (0.7-1.3); MAGNESIUM 2.7 mg/dL (1.8-2.4)
--- NOTE | 2020-12-02 17:22 | NUR ---
0986 CALLED PATIENT'S DAUGHTER MICHAEL AND UPDATED HER ON THE PATIENT'S STATUS. [address] MCCLURE THAT THE DAUGHTER WISES TO SPEAK WITH HIM. 1200 SPOKE WITH MICHAEL CONCERNING GIVEN BLOOD PRODUCTS FOR LOW FIBRINOGEN. FATHER IS CONFUSED BUT AGREES TO RECEIVE THE BLOOD PRODUCT.
--- NOTE | 2020-12-02 17:27 | NUR ---
1630 SPOKE WITH THE PATIENT'S DAUGHTER AGAIN AND UPDATED HER. REPORT GIVEN TO RESHMA HARDY AND PATIENT TRANSFERRED TO ROOM 240 WITH BELONGINGS.
--- NOTE | 2020-12-02 17:29 | NUR ---
1300 BEDSIDE EKG DONE, DR IRAHETA IN AND INFORMED THAT PATIENT REFUSED K-EXULATE. ORDERS NOTED. 1430 BEDSIDE ULTRASOUND OF CAROTIDS AND EXTERMITIES COMPLETED WELL RENAL ULTRASOUND. 1515 REPEAT EKG DONE AT BEDSIDE AND LAB WORK DRAWN. REASSURANCE GIVEN TO THE PATIENT. REMAINS ON PRECEDEX FOR ANXIETY, DOZING AT INTERVALS.
--- NOTE | 2020-12-02 18:36 | NUR ---
PT TRANSFERRED AT 1645 TO ROOM 240 FROM ICU ROOM 245. PT WAS ON OPTIFLOW AT TRANSFER BUT IMMEDIATELY REQUESTED TO BE PLACED ON BIPAP. PT HAS REMAINED ON BIPAP REMAINDER OF SHIFT SETTINGS /, RATE 12 70% FIO2
--- NOTE | 2020-12-02 22:00 | NUR ---
PT BECAME VERY AGITATED WHEN I ATTEMPED TO GIVE HIS PO MED AND HEPAIN INJECTION PUSHED ME AWAY. SAID HE DID NOT NEED ANYTHING BECAUSE HE WAS ALREADY , THEN HE ASKED ME IF HE WAS GOING TO . GIVEN MUCH REASSUREMENT. WILL CONT TO MONITOR
[2020-12-03] VITALS (38 sets, daily range): BP systolic 91–209; BP diastolic 62–126
[2020-12-03 04:43] LABS: ALBUMIN 2.9 g/dL (3.4-5.0); CALCIUM 8.5 mg/dL (8.5-10.1); CREATININE 1.1 mg/dL (0.7-1.3); DIRECT BILIRUBIN 0.2 mg/dL (<0.1-0.2); MAGNESIUM 2.3 mg/dL (1.8-2.4); PHOSPHORUS 3.5 mg/dL (2.5-4.9); POTASSIUM 4.8 mmol/L (3.5-5.1); TOTAL BILIRUBIN 0.8 mg/dL (0.2-1.0); TOTAL PROTEIN 6.9 g/dL (6.4-8.2); TROPONIN-I 0.07 ng/mL (<0.06)
[2020-12-03 05:11] LABS: ABSOLUTE NEUTROPHILS 11.4 thou/uL (1.4-8.2); BASOPHILS 0.1 % (0.0-2.0); EOSINOPHILS 0.4 % (0.0-3.0); HEMATOCRIT 51.4 % (42.0-52.0); HEMOGLOBIN 16.4 gm/dL (14.0-18.0); LYMPHOCYTES 4.6 % (24.0-44.0); MCV 87.5 fL (80.0-100.0); MONOCYTES 2.7 % (1.0-8.0); PLATELET COUNT 87 thou/uL (150-400); POLYS 92.2 % (36.0-66.0); RBC 5.87 mil/uL (4.50-6.00); RDW 13.9 % (10.5-14.5); WBC 12.4 thou/uL (4.0-11.0)
--- NOTE | 2020-12-03 06:00 | NUR ---
PT HAS RESTED QUIETLY THE PAST 4 HRS STILL REFUSED HEPARIN INJECTION AT 0600. REMAINS ON BIPAP AT 80 % LUNGS ESS CLEAR O2 SAT 98 % PT REFUSESD TO BE TURNED NOR TO WEAR SCDS. PRECEDEX AT .04 MCG TPN 40 CC/HR 1600 CC UO THIS SHIFT REMAINS IN ENHANSED PRECAUTIONS FOR COVID 19 WILL CONT TO MONITOR.
--- NOTE | 2020-12-03 07:07 | EKG ---
[address] [employer] [place] [address] ELECTROCARDIOGRAM REPORT Name: EMMANUEL CHRISTIE Room #: 240-P ADM IN M.R.#: [id number] Admission: 11/24/20 Attend Phys: Maria Luisa Escobar MD Discharge: Date of : 58 Report #: [id number] [facility] Test Date: 2020-12-02 Test Time: 15:08:51 Pat Name: EMMANUEL PRATIK Department: Room: 240 Gender: M Medical Claims Examiner: : 1960 Requested By: Manuel Waddell Order Number: [id number] : Yanick Pacheco Measurements Intervals [place] Rate: 60 P: 23 TN: 154 QRS: 41 QRSD: 117 T: 19 QT: 446 QTc: 446 Interpretive Statements Sinus rhythm Nonspecific intraventricular conduction delay Borderline ST elevation, lateral leads Baseline wander in lead(s) V1 Compared to ECG 12/02/2020 12:57:53 ST (T wave) deviation now present Early repolarization no longer present Electronically Signed On 12-03-2020 7:07:41 DIRECTOR BUSINESS INTEGRATION by Yanick Pacheco [email or web address] <ELECTRONICALLY SIGNED> By: Yanick Pacheco MD, FACC 12/03/20 0707 1508 1508 Yanick Pacheco MD, [facility] /EPI
--- NOTE | 2020-12-03 08:07 | EKG ---
[address] [address] ELECTROCARDIOGRAM REPORT Name: EMMANUEL CHRISTIE Room #: 240-P ADM IN M.R.#: [id number] Admission: 11/24/20 Attend Phys: Maria Luisa Escobar MD Discharge: Date of : 58 Report #: [id number] [facility] Test Date: 2020-12-02 Test Time: 12:58:37 Pat Name: EMMANUEL CHRISTIE Department: Room: 240 P Gender: M Dance Hall Hostess: : 1960 Requested By: Maria Luisa Escobar Order Number: [id number] MD: Manuel Waddell Measurements Intervals [place] Rate: 63 P: 29 KS: 149 QRS: 31 QRSD: 120 T: 9 QT: 456 QTc: 467 Interpretive Statements Sinus rhythm Nonspecific intraventricular conduction delay Early repolarization. Baseline wander in lead(s) V2,V3 Electronically Signed On 12-03-2020 8:07:07 ANTICHECKING IRON WORKER by Manuel Waddell [email or web address] <ELECTRONICALLY SIGNED> By: Manuel Waddell MD 12/03/20 0807 1258 1258 MD KANA Corona
--- NOTE | 2020-12-03 14:19 | NUR ---
chart review, requiring bipap, and nutritional support. noted he has refused medication at times. cm visited with daughter carl via phone call, she had not concerns or question " mario adams and another dr has call and had great communication, thank you"/daughter carl. will cont following as needed for dc needs.
--- NOTE | 2020-12-03 16:50 | NUR ---
12/03/20 ASSUMED CARE OF PATIENT FROM 2220-2336. PATIENT TRANSITIONED FROM BIPAP TO OPTIFLOW AT 70%. PATIENT WEANED OFF PRECEDEX. PATIENT ORIENTED MOST OF THE TIME WITH OCCASIONAL BRIEF MOMENTS OF CONFUSION. BECOMING MORE ORIENTED THROUGHOUT THE DAY. PATIENT ATE 50% OF BREAKFAST AND 50% OF LUNCH. 2 ENSURE SUPPLEMENTS AND ADEQUATE FLUIDS CONSUMED. TPN STOPPED PER ORDER. DAUGHTER MICHAEL UPDATED OVER THE PHONE. PATIENT SPEAKING WITH MULTIPLE FAMILY MEMBERS ON CELL PHONE. PATIENT EDUCATED ON NEW MEDICATIONS. PATIENT PROGRESSING TOWARDS GOALS OF CARE. REPORT GIVEN TO ANTONY BENITEZ.
--- NOTE | 2020-12-03 18:19 | NUR ---
RN ASSUMED THE CARE FOR THIS PT AROUND 153, UPON INITIAL ASSESSMENT, PT WAS ANXIOUS AND RESTLESS HR WAS AT 120s AND O2 AT 90s. RN COACHED BREATHING TECHNIQUES, INSTRUCTED PT TO BREATHE DEEPLY 10X PER HOUR, ALSO TALKED ABOUT PT BEING IN THE CENTER OF CARETE AND THAT PT AND THE TEAM WORK ALONGSIDE EACH OTHER, ALSO SPOKE ABOUT CURRENT GOALS FOR THE PT WHICH IS TO GO HOME. PT WAS AGREEABLE TO THE PLAN AND STATED HE WAS WILLING TO WORK HARDER. PT ALSO REFUSED HALDOL BID AT FIRST BUT RN EXPLAINED THE IMPLICATION OF THE MEDICATION AND WAS ABLE TO CALM PT DOWN AND PT WILLINGLY TOOK THE MEDICATION. PT HAS BEEN RUNNING TACHY. PT HAS PROGRESSED FROM THE BIPAP TO HIGH FLOW DURRING DAY TIME. SETTINGS ARE 45L, 70%FIO2. RN CONTINUING TO MONITOR. PT IS PROGRESSING TOWARDS DISCHARGE
[2020-12-04] VITALS (26 sets, daily range): BP systolic 119–172; BP diastolic 87–121
[2020-12-04 08:03] LABS: HEMATOCRIT 50.9 % (42.0-52.0); HEMOGLOBIN 16.1 gm/dL (14.0-18.0); MCH 27.7 pg (26.0-34.0); MCHC 31.7 g/dL (28.0-37.0); MCV 87.4 fL (80.0-100.0); RBC 5.82 mil/uL (4.50-6.00); RDW 13.8 % (10.5-14.5); WBC 13.8 thou/uL (4.0-11.0)
[2020-12-04 08:14] LABS: CALCIUM 8.5 mg/dL (8.5-10.1); CREATININE 1.3 mg/dL (0.7-1.3); DIRECT BILIRUBIN 0.3 mg/dL (<0.1-0.2); PHOSPHORUS 3.4 mg/dL (2.5-4.9); POTASSIUM 4.6 mmol/L (3.5-5.1); TOTAL BILIRUBIN 0.8 mg/dL (0.2-1.0); TOTAL PROTEIN 6.9 g/dL (6.4-8.2)
--- NOTE | 2020-12-04 10:39 | NUR ---
juliocesar received phone call from daughter carl haider [phone], had some question and concerns. " know dad is having delusion that he is being harmed and hospitalist say with dad high co2 that is not uncommon to have delusion but i have been taking to some physician friends and want to see if he can be covid tested again, or moved to [facility] and home that he can have visitor. we all so brought up some pic to be put up for dad to see of family and grand-kids, and not to be in closet. also i was told there is covid team, i would live to talk with the covid team. thank you"/daughter carl. juliocesar spoke with bedside nurse to call daughter and check see if someone on covid team can call her, ? if needs another covid test?.
--- NOTE | 2020-12-04 10:57 | NUR ---
TALKED TO PT SISTER MICHAEL AND HER QUESTIONS WERE ANSWERED ABOUT RETESTING THE PT AND TAKING OUT OF THE ISOLATION. DR. CURRY WAS ASKED ABOUT THE ISOLATION POLICY BEFORE CALLING BACK MICHAEL.
--- NOTE | 2020-12-04 20:20 | NUR ---
ASSUMED CARE OF PATIENT AT 1900. AFTER READING THROUGH PHYSICIAN NOTES, IT SAID PATIENT WAS IN POSSIBLE DIC, HOLD HEPARIN. HOWEVER HEPARIN HAD NEVER BEEN HELD. THIS RN CALLED NURSE PRACTITIONER, APPLICATIONS SYSTEMS ENGINEER ORDERED HEPARING TO BE HELD UNTIL AM, WHEN IT WOULD BE ADDRESSED. EXTENSIVE EDUCATION GIVEN TO PATIENT REGARDING CARE, OXYGEN NEEDS, GOALS. PATIENT REMAINS ANXIOUS, NEEDING CONTINUOUS REASSURANCE AND REDIRECTION. WILL CONTINUE TO DO SO. PROGRESSING SLOWLY TOWARDS POC GOALS.
[2020-12-05] VITALS (26 sets, daily range): BP systolic 124–159; BP diastolic 92–115
[2020-12-05 05:59] LABS: HEMATOCRIT 50.1 % (42.0-52.0); HEMOGLOBIN 15.9 gm/dL (14.0-18.0); MCH 28.3 pg (26.0-34.0); MCHC 31.8 g/dL (28.0-37.0); MCV 89.1 fL (80.0-100.0); RBC 5.62 mil/uL (4.50-6.00); WBC 13.2 thou/uL (4.0-11.0)
[2020-12-05 06:18] LABS: ALBUMIN 2.9 g/dL (3.4-5.0); CALCIUM 8.7 mg/dL (8.5-10.1); CREATININE 1.2 mg/dL (0.7-1.3); DIRECT BILIRUBIN 0.2 mg/dL (<0.1-0.2); PHOSPHORUS 3.4 mg/dL (2.5-4.9); POTASSIUM 4.8 mmol/L (3.5-5.1); TOTAL BILIRUBIN 0.8 mg/dL (0.2-1.0); TOTAL PROTEIN 6.8 g/dL (6.4-8.2)
[2020-12-06] VITALS (18 sets, daily range): BP systolic 125–161; BP diastolic 84–110
--- NOTE | 2020-12-06 05:20 | NUR ---
PT TURNS SELF, UTILIZES COUGH AND DEEP BREATHE, DENIES PAIN, COUGHING UP SMALL AMT SPUTUM. RESTING WELL, VSS.
[2020-12-06 06:11] LABS: CALCIUM 8.6 mg/dL (8.5-10.1); CREATININE 1.1 mg/dL (0.7-1.3); MAGNESIUM 2.1 mg/dL (1.8-2.4); PHOSPHORUS 3.7 mg/dL (2.5-4.9); POTASSIUM 4.7 mmol/L (3.5-5.1)
--- NOTE | 2020-12-06 09:00 | NUR ---
0900- Nurse talked with Idalmis and updated her on patients status and plan of care. Her questions were answered, nurse to call her with any changes or updates.
--- NOTE | 2020-12-06 11:37 | NUR ---
1115- PT working with patient to ambulate in room.
--- NOTE | 2020-12-06 13:34 | NUR ---
chart review. noted pt was on o2 nc and was able to work with physical therapy today. cm spoke with daughter carl via phone, education on acute rehab, post acute rehab and hh as we work towards dcp. roxanne lives alone. " thanks for calling"/carl. will cont following as needed for dc needs.
--- NOTE | 2020-12-06 14:59 | NUR ---
1447- Nurse talked with patients Daughter, Idalmis, to update her on patients status of 3 liters per nasal cannula, vital signs, and progess. Nurse informed her that patient would be moving to [facility] for continued care. She expressed she understood.
--- NOTE | 2020-12-06 15:31 | NUR ---
Report given to Manuel on for continuation of care when patient transfers.
--- NOTE | 2020-12-06 16:42 | NUR ---
1640- Nurse returned to unit to see tachycardia, with patient full body twitch. Versed being given to help calm patient. Dr. Palafox texted.
--- NOTE | 2020-12-06 16:42 | NUR ---
ASSUMED CARE AT 1620. PATIENT ARRIVED FROM ICU TO 3W AT 1620. PATIENT'S BELONGINGS ACCOUNTED FOR AND PATIENT WAS SETTLED IN THE CHAIR.
--- NOTE | 2020-12-07 05:03 | NUR ---
CATH PROCEDURE IS SCHEDULED FOR PT TODAY, AND PT HAS BEEN NPO SINCE 2399. PT HAS PAIN COMPLAINTS IN HIS FEET. PO PAIN MEDICATION GIVEN WITH GOOD SUCCESS. PT UP TO BATHROOM AD MARIANELA. A/0X4. SEE INTERVENTIONS FOR MEDICATIONS TO HOLD PRIOR TO HEART CATH. ALL CONSENTS ARE SIGNED AND IN PT CHART.
[2020-12-07 05:44] VITALS: BP 149/103
--- NOTE | 2020-12-07 06:26 | NUR ---
PT A/0X4. PT REQUESTING HIS CANDY. 02 SATS OVERNIGHT ARE GOOD. HR BELOW 100. POC WITH IVF.
[2020-12-07 07:12] VITALS: BP 142/105
[2020-12-07 09:02] LABS: CALCIUM 8.6 mg/dL (8.5-10.1); CREATININE 1.4 mg/dL (0.7-1.3); POTASSIUM 4.1 mmol/L (3.5-5.1)
[2020-12-07 09:39] LABS: HEMATOCRIT 50.8 % (42.0-52.0); HEMOGLOBIN 16.1 gm/dL (14.0-18.0); MCH 28.2 pg (26.0-34.0); MCHC 31.6 g/dL (28.0-37.0); MCV 89.1 fL (80.0-100.0); RBC 5.7 mil/uL (4.50-6.00); RDW 14.1 % (10.5-14.5); WBC 8.8 thou/uL (4.0-11.0)
[2020-12-07 11:10] VITALS: BP 137/97
--- NOTE | 2020-12-07 14:08 | NUR ---
5N CONSULT RECEIVED FOR Pt. Pt SEEN BY DINORA SMITH NP. Pt IS A GOOD CANDIDATE FOR ACUTE REHAB HOWEVER Pt ISN'T SURE YET WHETHER HE WANTS REHAB VS BEING ABLE TO GO STRAIGHT HOME. REQUESTED THAT Pt LET THE TEAM KNOW SOON POSSIBLE. WILL CONTINUE TO FOLLOW.
[2020-12-07 15:06] VITALS: BP 155/95
--- NOTE | 2020-12-07 16:39 | NUR ---
JAMES reviewed chart and spoke with nursing and attending physician. Pt was transferred to 3W from ICU. Pt remains in Enhanced Isolation. 5N consult ordered today. Pt appears to be a candidate for inpt acute rehab pending insurance authorization. JAMES placed several calls to pt's room. Line was busy. JAMES spoke with pt's dtr, Idalmis, via phone to provide update and discuss possible inpt acute rehab. Pt's dtr states that pt wants to go home and have HH services. SW explained the difference in level of care and therapy in acute rehab v. HH. Pt's dtr verbalized understanding and states she will speak with pt over the weekend regarding acute rehab. SW updated 5N rehab director occupational therapist and 5N rehab CRIMINAL RESEARCH SPECIALIST. No weekend discharge planned. JAMES is following to assist as needed with discharge planning.
[2020-12-07 20:08] VITALS: BP 143/98
[2020-12-08 03:01] VITALS: BP 151/100
[2020-12-08 05:41] LABS: CALCIUM 8.3 mg/dL (8.5-10.1); CREATININE 1.1 mg/dL (0.7-1.3)
[2020-12-08 06:39] LABS: HEMATOCRIT 47.2 % (42.0-52.0); HEMOGLOBIN 15.2 gm/dL (14.0-18.0); MCH 28.2 pg (26.0-34.0); MCHC 32.2 g/dL (28.0-37.0); MCV 87.5 fL (80.0-100.0); RBC 5.39 mil/uL (4.50-6.00); RDW 13.9 % (10.5-14.5); WBC 7.7 thou/uL (4.0-11.0)
[2020-12-08 07:29] VITALS: BP 142/102
--- NOTE | 2020-12-08 07:29 | NUR ---
PROGRESS PT A/OX4 UP WITH SBA ON 6 LITERS O2 UP TO 10 LITERS WITH ACTIVITY. IVF'S INFUSING ORDERED. ANTIBIOTICS ORDERED VOIDING QS PLAN TO DC TO REHAB WHEN STABLE.
[2020-12-08 11:06] VITALS: BP 124/91
[2020-12-08 15:33] VITALS: BP 127/90
--- NOTE | 2020-12-08 19:11 | NUR ---
RN ASSUMED PT'S CARE AT 0700AM, PT IS A&OX3, PT IS ON O2 4L/MIN/NC, PT'S VS ARE STBALE,PT DENIES PAIN AND SOB AT THIS TIME.
[2020-12-08 20:12] VITALS: BP 137/95
[2020-12-09 03:50] VITALS: BP 152/113
[2020-12-09 04:19] LABS: CALCIUM 8.5 mg/dL (8.5-10.1); CREATININE 1.1 mg/dL (0.7-1.3); POTASSIUM 4.1 mmol/L (3.5-5.1)
[2020-12-09 04:49] LABS: HEMATOCRIT 45.1 % (42.0-52.0); HEMOGLOBIN 14.7 gm/dL (14.0-18.0); MCH 28.5 pg (26.0-34.0); MCHC 32.6 g/dL (28.0-37.0); MCV 87.5 fL (80.0-100.0); RBC 5.15 mil/uL (4.50-6.00); WBC 9.6 thou/uL (4.0-11.0)
[2020-12-09 08:30] VITALS: BP 129/84
[2020-12-09 12:08] VITALS: BP 145/98
[2020-12-09 14:31] VITALS: BP 133/98
--- NOTE | 2020-12-09 16:36 | NUR ---
RN ASSUMED PT'S CARE AT 0700AM, PT IS A&OX4, PT IS ON O2 4L/MIN/NC, PT'S VS ARE STABLE, PT NEEDS CIPAP WHEN HE IS SLEEPING, PT NEEDS HELP TO GET UP, PT DENIES PAIN AND SOB BY THIS TIME.
[2020-12-09 19:46] VITALS: BP 141/99
[2020-12-10 03:22] VITALS: BP 146/98
--- NOTE | 2020-12-10 05:29 | NUR ---
PROGRESS PT A/O X4 BUT ANSWERS SLOWLY. FOUND THE DAYS MEDICATIONS ON BEDSIDE TABLE. GAVE PM MEDS AND HE ACTED LIKE HE TOOK THEM AND THEN SET THEM ON THE BESIDE TABLE. I ASKED WHY HE DIDN'T TAKE THEM AND HE SAID HE MEANT TOO. ALL MEDS CHARTED REFUSED. PT IS UNWILLING TO DO SIMPLE TASKS FOR HIMSELF SUCH UNCOVER TO EXIT BED, REACH FOR WATER. TOLD THE RUBBER THREAD SPOOLER HE WAS REPORTING HER TO THE DOCTOR FOR NOT ASSISTING HIM WITH THE BLANKETS. HE HAD CPAP ON FOR A FEW HOURS THEN TOOK IT OFF AND WORE 5 LITERS O2 INSTEAD. VOIDING PER URINAL, HAD A BM THIS SHIFT. TELE INTACT READING SR/ST VSS. CONTINUE POC.
[2020-12-10 07:18] LABS: HEMATOCRIT 45.1 % (42.0-52.0); HEMOGLOBIN 14.7 gm/dL (14.0-18.0); MCH 28.3 pg (26.0-34.0); MCHC 32.6 g/dL (28.0-37.0); MCV 86.9 fL (80.0-100.0); RBC 5.19 mil/uL (4.50-6.00); RDW 13.4 % (10.5-14.5); WBC 9.2 thou/uL (4.0-11.0)
[2020-12-10 07:28] VITALS: BP 115/88
[2020-12-10 07:50] LABS: CALCIUM 8.6 mg/dL (8.5-10.1); CREATININE 1.1 mg/dL (0.7-1.3); POTASSIUM 3.9 mmol/L (3.5-5.1)
[2020-12-10 11:11] VITALS: BP 156/95
[2020-12-10 15:14] VITALS: BP 118/87
--- NOTE | 2020-12-10 15:35 | NUR ---
JAMES reviewed chart and spoke with nursing and attending physician. Pt remains in Enhanced Isolation due to COVID. Pt is afebrile and on 5L of O2. Pt is on IV steroids. 5N is following for admission to inpt acute rehab when pt is medically stable and out of isolation. JAMES placed call to pt's room. Line was busy. JAMES spoke with pt's dtr, Idalmis, via phone to provide update and discuss discharge to 5N. Pt and family discussed pt going to 5N prior to returning home for continued therapy services. Pt does require up to 10L with activity. Pt's dtr requested to speak with a physician. SW provided pt's dtr's contact info to attending physician. JAMES is following to assist as needed with discharge planning.
--- NOTE | 2020-12-10 18:54 | NUR ---
RN ASSUMED PT'S CARE AT 0700AM, PT IS ON O2 4-L/MIN/NC, PT IS A&OX3, PT'S VS ARE STABLE, BUT PT HAS SOB WITH ACTIVITIES, RN REPORED HOSPITAL DR ABOUT PT'S ABNORMAL CTA CHEST RESULTS ( BILATERAL PULMONARY EMBOLISM ), NEW ORDER RECEIVED, PT DENIES PAIN AND SOB AT THIS TIME.
[2020-12-10 20:23] VITALS: BP 118/83
--- NOTE | 2020-12-10 23:49 | NUR ---
PT PROGRESSING SLOWLY TOWARDS D/C GOALS. VSS T 99.5.RESPIRATIONS UNLABORED ON 5LNC. REFUSED BIPAP PRESENTLY. RT GAVE TX. NO C/O PAIN. NO S/S DISTRESS. WILL CONTINUE TO MONITOR PT FOR CHANGES. BED DOWN CALL LIGHT IN REACH BED ALARM IS ON.
[2020-12-11 00:09] VITALS: BP 116/82
--- NOTE | 2020-12-11 00:40 | NUR ---
PT NOW ON BIPAP PER RT. RESTING QUIETLY. NO S/S DISTRESS.
[2020-12-11 04:24] VITALS: BP 118/88
--- NOTE | 2020-12-11 06:04 | NUR ---
PT RESTING QUIETLY HE TOOK OFF CPAP. PLACED BACK ON O2 5LNC. NO S/S DISTRESS.
[2020-12-11 06:27] LABS: HEMATOCRIT 46.2 % (42.0-52.0); HEMOGLOBIN 14.6 gm/dL (14.0-18.0); MCH 28.2 pg (26.0-34.0); MCHC 31.5 g/dL (28.0-37.0); MCV 89.4 fL (80.0-100.0); RBC 5.17 mil/uL (4.50-6.00); RDW 13.8 % (10.5-14.5); WBC 10.5 thou/uL (4.0-11.0)
[2020-12-11 06:44] LABS: CALCIUM 8.5 mg/dL (8.5-10.1); CREATININE 1.2 mg/dL (0.7-1.3); POTASSIUM 4.6 mmol/L (3.5-5.1)
[2020-12-11 07:38] VITALS: BP 102/76
[2020-12-11 11:27] VITALS: BP 128/94
--- NOTE | 2020-12-11 14:15 | NUR ---
JAMES reviewed chart and spoke with nursing and attending physician. Pt remains in Enhanced Isolation due to COVID. Pt is afebrile and on IV abx and IV steroids. Pt with new bilateral pulmonary embolism. JAMES discussed case with 5N rehabilitation construction specialist, who will start working on insurance authorization today with anticipation of pt discharging to 5N on Thursday, when he can come out of isolation. JAMES placed call to pt's room. No answer. JAMES is following to assist as needed with discharge planning.
[2020-12-11 15:27] VITALS: BP 130/90
--- NOTE | 2020-12-11 16:05 | NUR ---
PATIENT ACCEPTED TO FOR ACUTE REHAB ADMISSION PENDING INSURANCE AUTHORIZATION WITH ANTICIPATED ADMISSION ON 12/14/20. PATIENT'S INSURANCE CONTACTED AND IS IN NETWORK FOR PATIENT. PATIENT DOES HAVE REHAB BENEFITS. AUTHORIZATION REQUESTED AND CLINICAL INFORMATION SENT TO [facility]. PRECERTIFICATION NUMBER IS [id number]. WILL AWAIT INSURANCE RESPONSE.
--- NOTE | 2020-12-11 17:58 | NUR ---
assumed care of pt at 0700. pt alert and oriented, in no acute distress. remains on 5L NC. desaturates with activity. complains of pain with swallowing at times. good appetite. vitals stable. concerns addressed with patient and family. anticipate d/c to rehab when out of isolation window.
[2020-12-11 19:32] VITALS: BP 140/90
--- NOTE | 2020-12-11 20:09 | NUR ---
PT RESTING IN BED IN THE DARK. PT TALKING ON PHONE. 02 PER NC. EDEMA BLE AND FOREARMS. PT EDUCATED TO CALL FOR ASSISTANCE WITH AMBULATION.
[2020-12-12 04:58] VITALS: BP 131/92
[2020-12-12 05:16] LABS: HEMATOCRIT 44.6 % (42.0-52.0); HEMOGLOBIN 14.2 gm/dL (14.0-18.0); MCH 28.5 pg (26.0-34.0); MCHC 31.9 g/dL (28.0-37.0); MCV 89.2 fL (80.0-100.0); RDW 13.8 % (10.5-14.5)
[2020-12-12 05:34] LABS: CALCIUM 8.6 mg/dL (8.5-10.1); CREATININE 1.2 mg/dL (0.7-1.3); POTASSIUM 4.6 mmol/L (3.5-5.1)
[2020-12-12 07:37] VITALS: BP 128/90
[2020-12-12 11:25] VITALS: BP 108/81
--- NOTE | 2020-12-12 12:30 | NUR ---
PT CARE TAKEN OVER AT 0700, ALERT AND ORIENTED X4, DENIES ANY CHEST PAIN, NAUSEA AND VOMITTING. PT ON 3L OF OXYGEN AT MOMENT, SOB WITH EXERTION. NO SIGNS OF DISTRESS NOTED. USES THE URINAL AND UP TO BED SIDE CIOMMODE. USES CALL LIGHT APPROPRIATELY. FALL PRECAUTIONS IN PLACE. WILL CONTINUE TO MONITOR
--- NOTE | 2020-12-12 13:19 | NUR ---
JAMES reviewed chart and spoke with nursing and attending physician. Pt remains in Enhanced Isolation due to COVID. Pt is afebrile and on 4L of O2. Pt is on IV steroids. Discussed case with cfd engineer. Insurance authorization process started yesterday with anticipated discharge date planned for Thursday, 12/14. Pt will need to be out of Enhanced Isolation to discharge to . Pt will need a repeat COVID test prior to discharging to . JAMES spoke with pt via phone to provide update and discuss discharge plan. Pt is aware and agreeable with discharge plan. SW is following to assist as needed with discharge planning.
[2020-12-12 15:36] VITALS: BP 128/81
[2020-12-12 19:57] VITALS: BP 126/86
[2020-12-13 03:56] VITALS: BP 118/90
--- NOTE | 2020-12-13 06:37 | NUR ---
VSS OVERNIGHT. PT ON CPAP OFF AND ON OVERNIGHT, GOING BETWEEN NC AND CPAP. FOLLOWING POC AND MAINTAINING 02 SATURATION. PT REQUESTED TYLENOL X1. HOURLY ROUNDING. PT PROGRESSING TO DC GOALS.
[2020-12-13 09:45] LABS: APTT 22.7 Seconds (24.5-32.8); INR 1.1; PROTIME 10.8 Seconds (9.3-11.4)
--- NOTE | 2020-12-13 14:44 | NUR ---
PATIENT DENIED AUTHORIZATION FOR ACUTE REHAB STAY BY PATIENT'S INSURANCE, CARRIE ANNE. PEER TO PEER PERFORMED THIS DATE BY DR. EMMANUEL AUGUSTINE AND DENIAL WAS UPHEAL. DR. AUGUSTINE REQUESTED THAT AN APPEAL BE MADE TO PATIENT'S INSURANCE FOR ACUTE REHAB STAY. CALL MADE TO INSURANCE FOR AN EXPEDITED APPEAL. MESSAGE LEFT WITH REQUEST FOR CALL BACK. NUMBER CALLED WAS . AWAITING INSURANCE RESPONSE.
--- NOTE | 2020-12-13 15:11 | NUR ---
JAMES reviewed chart and spoke with nursing and attending physician. Pt remains in Enhanced Isolation due to COVID. Pt is afebrile and on 2L of O2. Pt is on IV abx. PT to have EGD today. Discharge to 5N is anticipated for tomorrow pending insurance approval. Peer 2 peer completed earlier today with pt's insurance. JAMES discussed with 5N rehab trainer, who states that they will do an appeal with pt's insurance. JAMES spoke with pt via phone to provide update. JAMES discussed need for insurance auth for 5N. JAMES discussed options should insurance not approve 5N: SNF v. Home with HH. Pt states he would prefer to go home if 5n is not approved. JAMES spoke with pt's dtr, Idalmis, via phone to provide update. JAMES is following to assist as needed with discharge planning.
[2020-12-13 15:46] VITALS: BP 129/93
--- NOTE | 2020-12-13 18:45 | NUR ---
PATIENT NOW SLEEPING. HE IS ALERT ORIENTED X4. MAY GO HOME TOMORROW. DOES NOT SEEM TO BE IN PAIN AT THIS TIME. WILL CONT WITH PLAN OF CARE.
[2020-12-13 19:35] VITALS: BP 124/82
[2020-12-14 04:45] VITALS: BP 146/93
--- NOTE | 2020-12-14 06:21 | NUR ---
PT MAKING PROGRESS TOWARD GOALS. ON O2 AT 2L PER NC OVERNIGHT. NOTED O2 SAT ON ROOM AIR WAS 90-91% WHILE AT REST. ABLE TO SPEAK WITHOUT ANY OBSERVABLE SOA. DENIED ANY SOA WHILE AT REST. LUNGS DIMINISHED THROUGHOUT.
--- NOTE | 2020-12-14 07:44 | NUR ---
ALL INFORMATION HAS BEEN SENT TO PATIENT'S INSURANCE FOR APPEALING DENIAL DECISION FOR ACUTE REHAB STAY. DECISION SHOULD BE KNOWN BY THIS AFTERNOON - 12/14/20.
[2020-12-14 07:47] VITALS: BP 141/77
--- NOTE | 2020-12-14 10:31 | NUR ---
JAMES reviewed chart and spoke with nursing and attending physician. Enhanced Isolations have been discontinued today. Pt is on room air. JAMES discussed case with 5N workplace rehabilitation officer. Appeal process has been started. Insurance will have a determination today. Rest/exercise oximetry ordered to evaluate pt's O2 needs, should pt's insurance not authorize 5N. Pt/family would prefer pt going home with HH if insurance does not authorize 5N. JAMES is following to assist as needed with discharge planning.
[2020-12-14] MEDS ORDERED: ELIQUIS5 MG PO (12:40)
[2020-12-14] MEDS ORDERED: FENOFIBRATE54 MG PO (12:40)
[2020-12-14] MEDS ORDERED: VITAMIN D325 MC1 PO (12:40)
[2020-12-14] MEDS ORDERED: MELATONIN5 M1 PO (12:40)
[2020-12-14] MEDS ORDERED: VITCB500GO PO (12:40)
[2020-12-14] MEDS ORDERED: NYSTATIN100000 UNI SW&SWALLOW (12:40)
[2020-12-14] MEDS ORDERED: PROTONIX 20 MG20 MG PO (12:40)
[2020-12-14] MEDS ORDERED: IPRAT-ALBUT 0.5-3 ML INH (12:40)
[2020-12-14] MEDS ORDERED: PREDNISONE 10 M10 M1 PO (13:03)
[2020-12-14 15:26] VITALS: BP 122/89
[2020-12-14 16:28] VITALS: BP 122/89
--- NOTE | 2020-12-14 16:44 | NUR ---
PATIENT HAS DISCHARGE ORDERS FOR REHAB, SEEN BY DR. AUGUSTINE. CLEARED FROM ISOLATION PRECAUTIONS PER ID. PATIENT TITRATED TO ROOM AIR. MONTIORING TO MAINTAIN SATS ABOVE 90%. EXERCISE SAT STUDY DONE WITH PT AND RT. PRN TYLENOL GIVEN FOR THROAT SORENESS. NOTIFIED DR. MASTERSON ABOUT TACHYCARDIA. EKG SHOWS SINUS TACH RATE 110, PATIENT ASYMPTOMATIC. ORDERS FOR DAILY METOPROLOL. REPORT CALLED TO 5N. FAMILY UPDATED ON TRANSFER.
--- NOTE | 2020-12-17 07:35 | EKG ---
[address] [address] ELECTROCARDIOGRAM REPORT Name: EMMANUEL CHRISTIE Room #: 353-[facility] IN ..#: [id number] Admission: 11/24/20 Attend Phys: Maria Luisa Escobar MD Discharge: 12/14/20 Date of : 58 Report #: [id number] [facility] Test Date: 2020-12-14 Test Time: 16:09:37 Pat Name: EMMANUEL CHRISTIE Department: Room: 353 P Gender: M Product Support Consultant: NIRAV : [id number] Requested By: Idalmis Powers Order Number: [id number] MD: Yanick Pacheco Measurements Intervals [place] Rate: 110 P: 41 UT: 132 QRS: 23 QRSD: 95 T: 5 QT: 314 QTc: 425 Interpretive Statements Sinus tachycardia Baseline wander in lead(s) V1 Compared to ECG 12/02/2020 15:08:51 Sinus rhythm no longer present Intraventricular conduction delay no longer present ST (T wave) deviation no longer present Electronically Signed On 12-17-2020 7:35:43 PERFUMER by Yanick Pacheco [email or web address] <ELECTRONICALLY SIGNED> By: Yanick Pacheco MD, FAC 12/17/20 0735 1609 1609 Yanick Pacheco MD, [facility] /EPI
== END 2020-12-14 17:28 | DRG 871 ==
LOC: ER 09:19 → EROBS 12:10 → 3W 12:10 → ICU 11-29 00:30 → 3W 12-06 16:37
PROVIDERS: Emergency Medicine; Hospitalist; Internal Medicine Pulmonary Disease; Nurse Practitioner Family; Pediatrics; Radiology Diagnostic Radiology; Specialist; ADMIT Internal Medicine; ATTEND Internal Medicine
PROC: 5A0935A Assistance with Respiratory Ventilation, Less than 24 Consecutive Hours, High Flow/Velocity Cannula (ICD-10-PCS; principal; 2020-11-25)
PROC: XW033E5 Introduction of Remdesivir Anti-infective into Peripheral Vein, Percutaneous Approach, New Technology Group 5 (ICD-10-PCS; principal; 2020-11-25)
PROC: 5A0935A Assistance with Respiratory Ventilation, Less than 24 Consecutive Hours, High Flow/Velocity Cannula (ICD-10-PCS; 2020-11-26)
PROC: 5A09357 Assistance with Respiratory Ventilation, Less than 24 Consecutive Hours, Continuous Positive Airway Pressure (ICD-10-PCS; 2020-11-27)
PROC: 5A0935A Assistance with Respiratory Ventilation, Less than 24 Consecutive Hours, High Flow/Velocity Cannula (ICD-10-PCS; 2020-11-28)
PROC: 5A09357 Assistance with Respiratory Ventilation, Less than 24 Consecutive Hours, Continuous Positive Airway Pressure (ICD-10-PCS; 2020-11-28)
PROC: 5A09357 Assistance with Respiratory Ventilation, Less than 24 Consecutive Hours, Continuous Positive Airway Pressure (ICD-10-PCS; 2020-11-29)
PROC: 5A0935A Assistance with Respiratory Ventilation, Less than 24 Consecutive Hours, High Flow/Velocity Cannula (ICD-10-PCS; 2020-11-29)
PROC: 5A0935A Assistance with Respiratory Ventilation, Less than 24 Consecutive Hours, High Flow/Velocity Cannula (ICD-10-PCS; 2020-11-30)
PROC: 5A09357 Assistance with Respiratory Ventilation, Less than 24 Consecutive Hours, Continuous Positive Airway Pressure (ICD-10-PCS; 2020-11-30)
PROC: 5A0935A Assistance with Respiratory Ventilation, Less than 24 Consecutive Hours, High Flow/Velocity Cannula (ICD-10-PCS; 2020-12-01)
PROC: 5A09357 Assistance with Respiratory Ventilation, Less than 24 Consecutive Hours, Continuous Positive Airway Pressure (ICD-10-PCS; 2020-12-01)
PROC: 30233M1 Transfusion of Nonautologous Plasma Cryoprecipitate into Peripheral Vein, Percutaneous Approach (ICD-10-PCS; 2020-12-02)
PROC: 5A09357 Assistance with Respiratory Ventilation, Less than 24 Consecutive Hours, Continuous Positive Airway Pressure (ICD-10-PCS; 2020-12-02)
PROC: 5A0935A Assistance with Respiratory Ventilation, Less than 24 Consecutive Hours, High Flow/Velocity Cannula (ICD-10-PCS; 2020-12-02)
PROC: 5A0935A Assistance with Respiratory Ventilation, Less than 24 Consecutive Hours, High Flow/Velocity Cannula (ICD-10-PCS; 2020-12-03)
PROC: 5A09357 Assistance with Respiratory Ventilation, Less than 24 Consecutive Hours, Continuous Positive Airway Pressure (ICD-10-PCS; 2020-12-03)
PROC: 5A09357 Assistance with Respiratory Ventilation, Less than 24 Consecutive Hours, Continuous Positive Airway Pressure (ICD-10-PCS; 2020-12-04)
PROC: 5A0935A Assistance with Respiratory Ventilation, Less than 24 Consecutive Hours, High Flow/Velocity Cannula (ICD-10-PCS; 2020-12-04)
PROC: 5A09357 Assistance with Respiratory Ventilation, Less than 24 Consecutive Hours, Continuous Positive Airway Pressure (ICD-10-PCS; 2020-12-05)
PROC: 5A0935A Assistance with Respiratory Ventilation, Less than 24 Consecutive Hours, High Flow/Velocity Cannula (ICD-10-PCS; 2020-12-05)
DX: A41.9 Sepsis, unspecified organism (principal); U07.1 COVID-19; N17.0 Acute kidney failure with tubular necrosis; J12.82 Pneumonia due to coronavirus disease 2019; J80 Acute respiratory distress syndrome; I26.99 Other pulmonary embolism without acute cor pulmonale; E46 Unspecified protein-calorie malnutrition; I82.602 Acute embolism and thrombosis of unspecified veins of left upper extremity; R13.10 Dysphagia, unspecified; D69.6 Thrombocytopenia, unspecified; R41.0 Disorientation, unspecified; E66.9 Obesity, unspecified; Z68.34 Body mass index [BMI] 34.0-34.9, adult; Z87.891 Personal history of nicotine dependence
CPT/HCPCS: 10078; 10879; 85076

== ENCOUNTER 2020-12-14 12:13 | Inpatient (IN) | payer OTHER ==
[~2020-12-14] VITALS: Ht 182.9 cm; Wt 111.1 kg
--- NOTE | ~2020-12-14 | D ---
[facility] [address] [place] [address] DISCHARGE SUMMARY Name: EPI CHRISTIE Room #: 516-1 ADM IN .R.#: [id number] Admission: 12/14/20 Attend Phys: Epi Jorgensen MD Discharge: Date of : 58 Report #: [id number] THIS REPORT FOR: cc: FAM - Family physician unknown FAM - Family physician unknown Epi Jorgensen MD ~ DATE OF SERVICE: 12/19/2020 ADDENDUM Please see the full discharge documentation. The patient has improved with his functional mobility and ambulation. He continues to need nasal prong oxygen and this will be checked just prior to discharge. While he has improved physically, he still has some cognitive deficits that are a concern at this point. He was seen by neuropsychology and noted to have severe deficits in visual, spatial construction and working memory. 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 Speech therapy has noted [id number] cognitive deficits. His main question has been regarding returning back to driving. The following recommendations have been given to him: 1. Followup with outpatient neuropsychology for cognitive testing. He has seen Dr. Job Addison and an appointment will be made for him to see Dr. Addison in approximately a month. 2. Outpatient speech therapy. He will need someone to transport him. 3. A script has been written for a driving evaluation at [facility]. 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 The patient notes that he has made an appointment with his primary care physician at [facility]. This information will be forwarded to the [facility]. I had a discussion with the patient regarding this morning in preparation for his upcoming discharge. By: 0924 58 Epi Jorgensen MD /PMT
[2020-12-14] MEDS ORDERED: PROTONIX 20 MG20 MG PO (12:40)
[2020-12-14] MEDS ORDERED: MELATONIN5 M1 PO (12:40)
[2020-12-14] MEDS ORDERED: ELIQUIS5 MG PO ×2 (12:40)
[2020-12-14] MEDS ORDERED: FENOFIBRATE54 MG PO (12:40)
[2020-12-14] MEDS ORDERED: VITCB500GO PO (12:40)
[2020-12-14] MEDS ORDERED: VITAMIN D325 MC1 PO (12:40)
[2020-12-14] MEDS ORDERED: IPRAT-ALBUT 0.5-3 ML INH (12:40)
[2020-12-14] MEDS ORDERED: NYSTATIN100000 UNI SW&SWALLOW (12:40)
[2020-12-14] MEDS ORDERED: PREDNISONE 10 M10 M1 PO (13:03)
[2020-12-14 18:28] VITALS: BP 133/94
[2020-12-14 20:00] VITALS: BP 145/69
--- NOTE | 2020-12-15 01:21 | NUR ---
PT ADMITTED TO 5N TODAY FROM 3W. PT HAD COVID. SAT WNL AT THIS TIME. BIPAP ON AT HS. VOIDING MODERATE AMOUNT OF YELLOW URINE. LUNGS DIMINISHED. TYLENOL HELPFUL FOR GENERALIZED PAIN. SLEEPING WELL. SAT WNL WITH CONT 02 SAT MONITOR. WILL CONTINUE TO MONITOR FREQUENTLY.
[2020-12-15 04:33] LABS: HEMATOCRIT 37.8 % (42.0-52.0); MCH 28.7 pg (26.0-34.0); MCHC 32.3 g/dL (28.0-37.0); RBC 4.24 mil/uL (4.50-6.00); RDW 13.9 % (10.5-14.5); WBC 9.3 thou/uL (4.0-11.0)
[2020-12-15 04:35] LABS: HEMOGLOBIN 12.2 gm/dL (14.0-18.0)
[2020-12-15 04:39] LABS: CALCIUM 8.4 mg/dL (8.5-10.1); CREATININE 1.3 mg/dL (0.7-1.3); POTASSIUM 4.1 mmol/L (3.5-5.1)
--- NOTE | 2020-12-15 13:37 | NUR ---
PT ALERT AND ORIENTED TIMES FOUR WITH PERIODS OF CONFUSION. VSS. 02 2L. PT DESATS WITH EXCERTION. PT DENIES PAIN. PT TOLERATES MEDS AND MEALS. PT WORKED WELL WITH PT/OT TODAY. PT PROGRESSING TOWRADS POC GOALS.
[2020-12-15 14:27] VITALS: BP 125/79
[2020-12-15 19:24] VITALS: BP 117/77
--- NOTE | 2020-12-16 01:02 | NUR ---
PT ASSESSMENT COMPLETED AND VSS. MEDS GIVEN ORDERED AND WELL TOLERATED. FALL PRECAUTIONS IN PLACE. VOIDING MODERATE AMOUNT OF URINE PER URINAL. SNACK PROVIDED BEFORE BED. SAT WNL ON BIPAP AT HS. SLEEPING WELL. WILL CONTINUE TO MONITOR FREQUENTLY. LUNGS REMAINS DEMINISHED.
[2020-12-16 08:00] VITALS: BP 117/82
--- NOTE | 2020-12-16 11:00 | NUR ---
ASSUMED CARE AT 0700. SLEPT FAIRLY WELL USING HIS BIPAP LAST NIGHT, WITH CONT PULSE 02 SATING IN THE MID 90S. ALERT AND ORIENTATED. DENIES ANY PAIN. SAT IN THE MID 90S ON RA WITH RESTING. PT EASILY DESAT IN THE MID 80S WITH ACTIVITY AND REQUIRES 02 2-4L TO KEEP SAT > 92%. 02 SAT IMMEDIATELY RETURNS IN THE MID 90S UPON REST. PT ALSO HAS HX OF PE AND ON ANTICOAGULANT MEDS. PT ENC TO USE THE INCENTIVE SPIROMETRY TO IMPROVE 0XYGENATION. TOLERATES MEDS WITH WATER WITHOUT ANY DIFFICULTY. PARTICIPATED WITH PT TODAY. PT NEEDS 02 WITH GETTING UP WITH THERAPY AND CONT TO ENC IS.
[2020-12-16 20:26] VITALS: BP 130/81
--- NOTE | 2020-12-17 04:13 | NUR ---
JEY, ADDED WATER TO HIS CPAP MACHINE AND PUT IT ON AT 2215, CONTINUOUS O2 SAT MONITOR ON WITH NO ALARMS NOTED. USING URINAL
[2020-12-17 07:42] VITALS: BP 148/111
[2020-12-17 08:32] VITALS: BP 148/36; BP 148/86
--- NOTE | 2020-12-17 11:45 | NUR ---
ASSUMED CARE AT 0700. SLEPT FAIRLY WELL. ALERT AND ORIENTATED. DENIES ANY PAIN. DESAT WITH ACTIVITY, ON 2L. ON CONT 02 PULSE. LUNGS DIMINISHED. PT IS ON BREATHING RX AND ENC TO USE INCENTIVE SPIROMETRY. TACHYCARDIC WITH ACTIVITY WITH HR 110-120. STARTED ON BETA BLOCKERS THIS EVENING. UP WITH SBA. APPETITE GOOD, HAD A LARGE BM TODAY. PARTICIPATING WITH THERAPY AND PROGRESSING SLOWLY TOWARDS GOAL.
--- NOTE | 2020-12-17 12:00 | NUR ---
chart review. cm visit with roxanne at bedside, cm cont to wear mask, and shield during visit. intro to cm, dcp, and team meeting. noted he live alone, independent, drives, manage own medication, going to get pcp when dcp. education that needs pcp to manage out needs after dc home. education on having to have sleepy study before getting cpap. " ok will do it, i will need own"/roxanne. re-education that sleep study has to be done after dc from hospital, if need and requires home o2. will set up if needed.
[2020-12-17 20:10] VITALS: BP 109/72
--- NOTE | 2020-12-18 03:26 | NUR ---
ABLE TO ADD WATER TO CPAP MACHINE AND PLACE MASK ON WITHOUT ASSIST. USING IS AND FLUTTER VALVE FREQUENTLY. MAINTAINING O2 SATS GREATER THAN 94% ON 2L PER NASAL CANNULA OR BLEED-IN TO CPAP. SAT = 92-94% NOW WITH PATIENT AT REST AND OBSERVING CONTINUOUS SAT MONITOR WITH OXYGEN ON STANDBY UNDER HIS CHIN. VANILLA ICE CREAM AND ARASELI CRACKER SNACK -- NOTES THAT HE DIDNOT GET REQUESTED BHUTANESE FRIES WITH MEAL LAST EDMAR AND IS HUNGRY NOW
[2020-12-18 08:00] VITALS: BP 113/77
--- NOTE | 2020-12-18 09:20 | NUR ---
PT WORKING WITH THERAPY THIS AM. PT UP WITH STAND-BY ASSIST. PT HAS OXYGEN ON 2L NC PERIODICALLY. PT SAT THIS AM IS 95%. PT DIDN'T SEEM SOB WITH ACTIVITY. PT HAS FLUTTER VALVE AND IS AT BEDSIDE. PT TOOK MEDS WITHOUT ANY ISSUES. PT DIDN'T LIKE TO SWALLOW NYSTATIN LIQUID, PT SWISHES AND SPITS OUT.
--- NOTE | 2020-12-18 13:50 | NUR ---
team meeting, reccommendation, o2 2-4 l with act, possible needs home o2. will need outpt sleep study. he needs clues for rest breaks rt soa. need assist with medication and finances. intital supervision at him. no driving or work until cleared by MD. need to see how much support he will have at home. home steps. dc [address] outpt neuro pysch. evelioquedelon checks through out the day. outpt pulmon rehab.
--- NOTE | 2020-12-18 18:12 | NUR ---
PT ASKING ABOUT HIS MEDS THIS EDMAR. PT STATED WHAT IT THE DEAL WITH ASKING FOR MY MEDS. EXPLAINED TO PT THAT IT HELPS EVALUATE IF HE CAN REMEMBER TO TAKE HIS MEDS. TOLD PT TO REMIND ST [facility]OM[facility]IN[facility] TO GET A MEDS SHEET THAT SHOWS HIS MEDS AND TIMES.
[2020-12-18 19:55] VITALS: BP 119/79
[2020-12-19 05:37] LABS: HEMOGLOBIN 11.3 gm/dL (14.0-18.0); MCH 29.1 pg (26.0-34.0); MCHC 32.3 g/dL (28.0-37.0); MCV 89.9 fL (80.0-100.0); RBC 3.89 mil/uL (4.50-6.00); RDW 14.8 % (10.5-14.5); WBC 6.8 thou/uL (4.0-11.0)
--- NOTE | 2020-12-19 07:25 | NUR ---
PROGRESS PT UP AD MARIANELA VSS, REQUESTED MEDS AT CORRECT TIME VOIDING QS DENIES PAIN LOOKING FORWARD TO DISCHARGING HOME. O2 AT 2 LITERS AT REST UP TO 4 ITERS WITH ACTIVITY PT ADJUSTING NEEDED.
[2020-12-19 08:00] VITALS: BP 123/80
--- NOTE | 2020-12-19 08:17 | PLAN ---
[facility] [place] [address] REHAB UNIT PLAN OF CARE Name: EPI CHRISTIE Room #: 516-1 ADM IN M.R.#: [id number] Admission: 12/14/20 Attend Phys: Epi Jorgensen MD Discharge: Date of : 58 Report #: [id number] THIS REPORT FOR: cc: FAM - Family physician unknown FAM - Family physician unknown Epi Jorgensen MD ~ DATE OF SERVICE: 12/15/2020 PROGRESS NOTE/OVERALL PLAN OF CARE SUBJECTIVE: The patient was seen after admission for acute inpatient rehabilitation. Temperature 37.7, pulse 106, respirations 20, blood pressure 117/77. He was in no distress. He is on 2 liters nasal prong O2. Gastroenterology is following. He is not to have the EGD with the fact that he is on Eliquis post-pulmonary embolism and the fact that he is post-COVID. He has been actively involved in his therapies with good motivation. Transfers are standby assistance. Gait is standby assistance 300 feet. He is able to go up and down 12 steps, contact guard. In occupational therapy, upper body dressing supervision, lower body dressing supervision. Speech therapy is involved. He did note [id number]-gj-[id number] cognitive deficits with some decreased attention. Hnte-rl-ydasagao memory deficits. ASSESSMENT: 1. Toxic metabolic encephalopathy with possible hypoxic component improving. 2. Medical complexity with generalized debilitation secondary to COVID-19, acute illness. 3. SARS COVID-19 pneumonia and acute hypoxemic respiratory failure. 4. Bilateral pulmonary embolism. 5. Acute renal insufficiency, which has resolved. 6. Thrombocytopenia. 7. Obesity. 8. Suspected obstructive sleep apnea. 9. Borderline type 2 diabetes mellitus. PLAN: The overall plan of care is based on the preadmission screen and information garnered from therapy assessments. 1. Estimated length of stay is probably around 7-10 days. 2. Medical prognosis is reasonably good. 3. Anticipated interventions includes the interdisciplinary acute inpatient rehabilitation program. 4. Anticipated functional outcomes would be for the patient to become modified independent with transfers, mobility, ADLs to improve as far as cognition to be able to return back to the home setting. 5. Discharge destination would be back to the home setting where he lives in a house. He does have a large family in the area [place] [address] REHAB UNIT PLAN OF CARE Name: EPI CHRISTIE Room #: 516-1 [facility] IN ..#: [id number] Admission: 12/14/20 Attend Phys: Epi Jorgensen MD Discharge: Date of : 58 Report #: [id number]. Expected therapy by discipline includes PT, OT and speech 1 hour per day each five days a week throughout the duration of the acute inpatient rehabilitation stay. <ELECTRONICALLY SIGNED> By: Epi Jorgensen MD 12/19/20 0817 0912 0343 Epi Jorgensen MD /delon
--- NOTE | 2020-12-19 09:17 | NUR ---
ASSUMED CARE FOR PT AT 0700. ASSESSMENT PERFORMED. MEDICATION ADMINISTRATION. PT ASKED FOR MEDS. PT DENIES PAIN AT THIS TIME. WILL CONITNUE TO MONITOR.
--- NOTE | 2020-12-19 15:28 | NUR ---
faxed initial referral to [facility] home o2
[2020-12-19 20:00] VITALS: BP 142/93
[2020-12-20] MEDS ORDERED: FENOFIBRATE54 MG PO ×2 (08:23→12:56)
[2020-12-20] MEDS ORDERED: MELATONIN5 M1 PO (08:23)
[2020-12-20] MEDS ORDERED: PROTONIX 20 MG20 MG PO ×2 (08:23→12:57)
[2020-12-20] MEDS ORDERED: VITCB500GO PO ×2 (08:23→12:57)
[2020-12-20] MEDS ORDERED: COREG3.125 MG PO ×2 (08:23→12:56)
[2020-12-20] MEDS ORDERED: VITAMIN D325 MC1 PO ×2 (08:23→12:57)
[2020-12-20] MEDS ORDERED: ELIQUIS5 MG PO ×2 (08:23→12:56)
[2020-12-20] MEDS ORDERED: ZINC SULFATE50 MG PO ×2 (08:23→12:57)
[2020-12-20] MEDS ORDERED: VENTOLIN HFA 1818 GM INH ×2 (08:24→12:56)
--- NOTE | 2020-12-20 12:25 | NUR ---
FAXED SCRIPT TO OUTPT THERAPY SPOKE WITH COLE AT OUTPT THERAPY AND THEY WILL SET UP THERAPY WITH PT.
[2020-12-20] MEDS ORDERED: NYSTATIN100000 UNI PO (12:56)
--- NOTE | 2020-12-20 15:45 | NUR ---
Assumed pt care at 0700. pt was co-operative and calm with care. ASSESSments done, VSS. pt was alert and oriented X4. TOOK MEDS WHOLE WITH THIN LIQUID, NO DIFFICULTY NOTED. PARTICIPATE WITH THERAPY. deNIES PAIN AT THIS TIME. PT CALLS FOR HIS MEDICATIONS. PT IS LOOKING FORWARD TO DISCHARGE. dAUGHTER MICHAEL WILL BE PICKING PT UP AT 1500 12/21/20. WILL CONTINUE TO MONITOR PT.
[2020-12-20 20:24] VITALS: BP 139/88
[2020-12-21 05:36] LABS: HEMATOCRIT 37.4 % (42.0-52.0); MCH 28.9 pg (26.0-34.0); MCHC 32.1 g/dL (28.0-37.0); MCV 89.9 fL (80.0-100.0); RBC 4.16 mil/uL (4.50-6.00); RDW 15.4 % (10.5-14.5); WBC 6.2 thou/uL (4.0-11.0)
--- NOTE | 2020-12-21 05:37 | NUR ---
PT DENIED PAIN SO FAR.PT ON 2L/NC PRN.PT SLEPT WITH HIS CPAP OFF AND ON.CONT PUISE OX IN PLACE.PT WAS ABLE TO REMEMBER AND ASKED FOR HIS HS MEDS,TOOK THEM OK.PT ENCOURAGED TO USE HIS INCENTIVE SPIROMETER.PT LOOKING FORWARD TO BE DC;D LATER IN THE DAY.CALL LIGHT WITHIN REACH.
[2020-12-21 06:06] LABS: CALCIUM 8.4 mg/dL (8.5-10.1); POTASSIUM 3.8 mmol/L (3.5-5.1)
[2020-12-21 07:15] VITALS: BP 122/83
--- NOTE | 2020-12-21 11:59 | NUR ---
cm delivered portable o2 tank from [facility] to [facility] today. sent referral to ability for driving evaluation.
--- NOTE | 2020-12-21 12:33 | NUR ---
ASSUMED PT CARE THIS AM. PT VSS, A&OX4. PT PLEASANT AND COOPERATIVE WITH STAFF. PT REMAINS CONTINENT, USING A URINAL WHEN NEEDED. ON ROOM AIR. TOOK MEDS WEL LWITHOUT COMPLAINT THIS MORNING. HYDRATION ENCOURAGED. CALLING APPROPRIATELY WHEN NEEDED. AWAITING FAMILY MEMBER TO BE AT BEDSIDE TO DO DISCHARGE TEACHING REQUESTED BY THE PATIENT. REPORTING NO PAIN. FALL PRECAUTIONS IN PLACE.
[2020-12-21 13:48] VITALS: BP 122/83
--- NOTE | 2020-12-22 16:50 | HC ---
[facility] [place] [address] CONSULTATION Name: EMMANUEL CHRISTIE Giovanna Room #: 516-1 [facility] IN ..#: [id number] Admission: 12/14/20 Attend Phys: Emmanuel Jorgensen MD Discharge: 12/21/20 Date of : 58 Report #: [id number] THIS REPORT FOR: cc: FAM - Family physician unknown FAM - Family physician unknown Job Addison PhD ~ DATE OF SERVICE: 12/16/2020 NEUROBEHAVIORAL STATUS EXAM AGE: 60 ATTENDING PHYSICIAN: Emmanuel Jorgensen MD CERTIFIED PROSTHETIST/ORTHOTIST: Job Addison, PhD CLINICAL PRESENTATION: The patient is a 60-year-old male admitted to the [facility] Rehabilitation Unit for a comprehensive inpatient rehabilitation program. Prior to this most recent admission, he experienced shortness of breath, cough, fatigue and poor oral intake. He was diagnosed with COVID-19, acute respiratory failure with multilobar pneumonia and admitted to ICU. The patient was started on IV steroids and remdesivir. He was treated by Infectious Disease, Pulmonary and hospitalist specialist. His problem list included acute respiratory insufficiency; COVID-19; obesity with a BMI of 30-39.9; pneumonia due to COVID-19 virus; tobacco use disorder in sustained remission. His assessment on admission to the rehabilitation unit was acute metabolic and hypoxic encephalopathy that is improving, medical complexity with generalized debility secondary to COVID-19, bilateral PE, FARIBA resolved, thrombocytopenia, obesity, suspected obstructive sleep apnea and borderline type 2 diabetes mellitus. A complete description of his medical condition and history along with medications can be found in his medical record. Neuropsychological consultation was requested to provide assistance in the assessment of cognitive and emotional status and provide recommendations and services. Prior to this most recent admission, the patient reports living alone and is with four children. 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 He does not report prior treatment for anxiety or depression. He also denies alcohol/cannabis use. Caffeine is within normal limits. TECHNIQUES UTILIZED: Clinical interview, review of medical records, staff consultation and behavioral observation, mini mental status exam 2 standard version, clock drawing, verbal fluency assessment and digits forward, digits [facility] [address] [place] [address] CONSULTATION Name: EMMANUEL CHRISTIE Room #: 516-1 [facility]#: [id number] Admission: 12/14/20 Attend Phys: Emmanuel Jorgensen MD Discharge: 12/21/20 Date of : 58 Report #: [id number]. EXAMINATION FINDINGS: The patient was alert and cooperative with the assessment. He accurately described events surrounding his admission. His thoughts are logical and goal oriented. There is no evidence of thought disorder. He does not present with an aphasia. He reports a period of amnesia surrounding his initial hospitalization. He remembers getting something to eat at his home, feeling sick and checking into the hospital and then awakening several days later while he was in ICU. Symptoms are reported to include memory, decreased sensitivity to smell and taste. He denies anxiety, depression, sleep or appetite. Performance on the MMSE 2 brief version is within normal limits with a raw score of 14/16. He was 1/3 for immediate recall of 3 items after a brief time delay and distraction. The patient was alert and oriented. Performance on the MMSE 2 standard version in the mild range of impairment with a raw score 23/30, which is a T score of 39 and percentile rank of 14. He was 1/5 for serial sevens, 2/2 for naming, 1/1 for repetition. Comprehension reading and writing were within normal limits. However, he was unable to accurately copy a simple geometric design. Clock drawing was within normal limits. Verbal fluency assessment indicates letter fluency to be within normal limits with a T score of 50 and percentile rank of 50. Mild deficits are suggested in category fluency with a T score of 37 and percentile rank at 10. Overall, total fluency was in the low average range with a T score of 42 and percentile rank of 21. Initial focused attention as assessed through digits forward was within normal limits with a T score of 56 and percentile rank of 73. However, severe deficits are noted in sustained concentration and working memory with a T score of 28 and percentile rank of 1. The patient is presenting with severe deficits in visual spatial construction and working memory. DIAGNOSTIC IMPRESSION: Mild neurocognitive disorder, likely due to hypoxia and residual symptoms of COVID-19. Unspecified anxiety disorder. RECOMMENDATIONS: The patient will require a followup neuropsychological evaluation to clarify cognitive status before returning to work as a truck driver supervisor. Assisting the patient in recognizing areas of deficit along with [facility] [address] [place] [address] CONSULTATION Name: EMMANUEL CHRISTIE SR Room #: 516-1 [facility] IN [facility]#: [id number] Admission: 12/14/20 Attend Phys: Emmanuel Jorgensen MD Discharge: 12/21/20 Date of : 58 Report #: [id number] encouraging the use of methods of compensation will assist his overall adjustment. Thank you very much for allowing me to provide the consultation on this patient. <ELECTRONICALLY SIGNED> By: Job Addison, PhD 12/22/20 1650 [id number] Job Addison, PhD /nt
--- NOTE | 2020-12-23 03:29 | NUR ---
LATE ENTRY NOTE: ON 12/20/20, PEDIATRIC SPORTS MEDICINE SPECIALIST EDUCATED PATIENT'S DAUGHTER, MICHAEL, VIA TELEPHONE RE: COGNITIVE AND MEMORY DEFICITS, NEED FOR ASSISTANCE/SUPERVISION WITH MANAGING MEDICINE AND FINANCES, NO DRIVING UNTIL PATIENT IS CLEARED BY PRIMARY CARE PHYSICIAN, DEMONSTRATED ABILITIES WITH MANAGING 02 AND PATIENT'S DECREASED INSIGHT AND SAFETY AWARENESS. IT WAS RECOMMENDED A FAMILY MEMBER SPEND THE FIRST DAY OR TWO WITH THE PATIENT TO ENSURE SAFETY IN THE HOME ENVIRONMENT. PEDIATRIC SPORTS MEDICINE SPECIALIST ALSO PROVIDED EDUCATION RE: MEDICATION LIST PER NURSE PRACTITIONER'S REQUEST; NURSE PRACTITIONER TO FOLLOW UP WELL. PATIENT'S DAUGHTER STATED ALL INFORMATION WAS UNDERSTOOD AND WAS AGREEABLE WITH NO ADDITIONAL QUESTIONS AT THE TIME.
== END 2020-12-21 14:15 | disposition home or self-care (01) | DRG 91 ==
PROVIDERS: Nurse Practitioner Family; ADMIT Physical Medicine & Rehabilitation; ATTEND Physical Medicine & Rehabilitation
PROC: 5A09357 Assistance with Respiratory Ventilation, Less than 24 Consecutive Hours, Continuous Positive Airway Pressure (ICD-10-PCS; principal; 2020-12-14)
PROC: 5A09357 Assistance with Respiratory Ventilation, Less than 24 Consecutive Hours, Continuous Positive Airway Pressure (ICD-10-PCS; 2020-12-15)
PROC: 5A09357 Assistance with Respiratory Ventilation, Less than 24 Consecutive Hours, Continuous Positive Airway Pressure (ICD-10-PCS; 2020-12-16)
PROC: 5A09357 Assistance with Respiratory Ventilation, Less than 24 Consecutive Hours, Continuous Positive Airway Pressure (ICD-10-PCS; 2020-12-18)
PROC: 5A09357 Assistance with Respiratory Ventilation, Less than 24 Consecutive Hours, Continuous Positive Airway Pressure (ICD-10-PCS; 2020-12-19)
PROC: 5A09357 Assistance with Respiratory Ventilation, Less than 24 Consecutive Hours, Continuous Positive Airway Pressure (ICD-10-PCS; 2020-12-21)
DX: G92 Toxic encephalopathy (principal); I26.99 Other pulmonary embolism without acute cor pulmonale; J80 Acute respiratory distress syndrome; E46 Unspecified protein-calorie malnutrition; G93.1 Anoxic brain damage, not elsewhere classified; N17.9 Acute kidney failure, unspecified; D68.59 Other primary thrombophilia; D69.6 Thrombocytopenia, unspecified; R13.10 Dysphagia, unspecified; E66.9 Obesity, unspecified; Z60.2 Problems related to living alone; R53.81 Other malaise; G31.84 Mild cognitive impairment of uncertain or unknown etiology; F41.9 Anxiety disorder, unspecified; G47.33 Obstructive sleep apnea (adult) (pediatric); R73.03 Prediabetes; Z68.33 Body mass index [BMI] 33.0-33.9, adult; Z86.16 Personal history of COVID-19; Z87.891 Personal history of nicotine dependence
CPT/HCPCS: 10112